=== PATIENT | female | born 1935 | race Caucasian/White ===

== ENCOUNTER 2016-10-04 18:44 | Outpatient (CLI) ==
[2016-08-02 23:45] VITALS: BMI 38.9
[2016-10-04 18:54] LABS: ADD URINE MICROSCOPIC YES; BILIRUBIN,URINE Negative (NEGATIVE); KETONES,URINE Negative (NEGATIVE); LEUKOCYTE ESTERASE ,URINE 3+ (NEGATIVE); NITRITE,URINE Positive (NEGATIVE); PH,URINE 5.5 (5-9); PROTEIN,URINE 2+ (NEGATIVE); URINE, BLOOD 2+ (NEGATIVE)
[2016-10-04 18:55] LABS: BACTERIA,URINE 3+ (NOT PRESENT)
== END 2016-10-04 18:45 | disposition home or self-care (01) ==
LOC: NONPT 18:44
PROVIDERS: ATTEND Internal Medicine
DX: R30.0 Dysuria (principal); R41.0 Disorientation, unspecified
CPT/HCPCS: 81001; 87086; 87186

== ENCOUNTER 2016-11-13 11:23 | Outpatient (CLI) ==
[2016-11-13 14:47] VITALS: BMI 38.4
== END 2016-11-13 11:24 | disposition home or self-care (01) ==
LOC: AMBL 11:23
PROVIDERS: ATTEND Internal Medicine Geriatric Medicine
DX: J96.00 Acute respiratory failure, unspecified whether with hypoxia or hypercapnia (principal); R06.02 Shortness of breath; R05 Cough; R06.2 Wheezing; Z99.81 Dependence on supplemental oxygen

== ENCOUNTER 2016-11-13 11:36 | Inpatient (IN) | payer OTHER ==
[2016-11-13] MEDS ORDERED: DUONEB NEB STA (11:39)
--- NOTE | 2016-11-13 11:43 | ED.PDOC ---
General ED Provider: Dr. LOUIS MCKEON Chief Complaint: Shortness of Air Stated Complaint: Fever 101.8. Short ness of breath with low sat 60 %, usually on 2 li. Had a breathing treatment sat to 84 % ,. Admitted to [facility] due to Foot fracture 4 months ago. Has been sick for 3 days. with cough and wheezing. She Was treated recently for UTI. Code status DNR. Time Seen by Physician: 11:49 Information Source: Patient Primary Care Provider: AMARI DUMONT Nursing and Triage Documentation Reviewed and Agree: Yes Respiratory Complaint Exam - Shortness of Air Complaint/Exam Onset/Duration: 3 days Symptoms Are: Still present Timing: Constant Initial Severity: Severe Current Severity: Severe Character: Reports: Dyspnea at rest Aggravating: Reports: None Alleviating: Reports: EMS treatment, Oxygen Associated Signs and Symptoms: Reports: Cough, Wheezing, Fever, Chills, Edema History of Healthcare-Acquired Pneumonia: No Pulmonary Embolism Risk Factors: Denies: Recent surgery, Recent trauma, DVT Pseudomonas Risk Factors: Reports: Chronic Lung Disease Tuberculosis Risk Factors: Reports: Communal living Home Oxygen Use: Yes (2 l) Recent Stress Test: No Recent Echo/LV Function: No Respiratory Distress: Moderate Stridor Present: No Tracheal Deviation: No Subcutaneous Emphysema: No Accessory Muscle Use: No Diminished Breath Sounds: No Prolonged Expiratory Phase: Yes Unable to Speak Full Sentences: No Fatigue: No Leg Swelling: No Simba's Sign Present: No Grunting Respirations: No Kussmaul Respirations: No Differential Diagnoses: COPD Exacerbation, Pneumonia Review of Systems - Review Of Systems Constitutional: Reports: Chills Eyes: Reports: No symptoms Respiratory: Reports: Cough, Short of air, Wheezing Cardiac: Reports: No symptoms GI: Reports: No symptoms : Reports: No symptoms Musculoskeletal: Reports: No symptoms Skin: Reports: No symptoms Neurological: Reports: No symptoms, Anxiety Endocrine: Reports: No symptoms Hematologic/Lymphatic: Reports: No symptoms All Other Systems: Reviewed and Negative Past Medical History - Past Medical History Endocrine: Reports: Hypothyroid Cardiovascular: Reports: Hypertension Respiratory: Reports: COPD, Other (Respiratory failure ) Hematological: Reports: None Gastrointestinal: Reports: None Genitourinary: Reports: None Neuro/Psych: Reports: Anxiety, Depression Musculoskeletal: Reports: Arthritis, Back Pain Cancer: Reports: None - Surgical History General Surgical History: Reports: Hysterectomy, Cholecystectomy, Other ( Thyroid ) - Family History Family History: Reports: Unknown - Social History Smoking Status: Never smoker Hx Substance Use: No Alcohol Screening: None Physical Exam - Physical Exam Appearance: Ill-appearing Ill-appearing: Severe Neck: Supple Respiratory: Rhonchi, Wheezes GI/: Soft Musculoskeletal: Normal strength, ROM intact, No edema, No calf tenderness Skin: Warm, Dry, Normal color Psychiatric: Anxious Interpretation - Radiology Interpretation Radiology Interpretation By: ED Physician Radiology Results: Positive Exam Interpreted: Portable CXR (Left lower lobe infiltrate. ) - EKG Interpretation Time of EKG #1: 11:42 Rate: Normal Rhythm: Other (Atrial flatter) Ectopy: None [place]: Left Interpretation: No ischemia Physician Notification - Case Discussed Physician Notified: Bejgum Time of Notification: 13:10 (ok to admit To SCU) Critical Care Note - Critical Care Note Total Time (mins): 30 Course - Course Hematology/Chemistry: 11/13/16 11:55 11/13/16 11:55 Orders, Labs, Meds: Lab Review 11/13/16 11/13/16 11:39 11:55 WBC 17.67 H RBC 4.07 L Hgb 12.3 Hct 36.6 L MCV 89.9 MCH 30.2 MCHC 33.6 RDW Coeff of Juan 14.3 Plt Count 345 Immature Gran % (Auto) 1.2 Neut % (Auto) 71.2 Lymph % (Auto) 17.7 Monona % (Auto) 8.6 Eos % (Auto) 1.1 Baso % (Auto) 0.2 Immature Gran # (Auto) 0.2 Neut # 12.6 H Lymph # 3.1 Monona # 1.5 Eos # 0.2 Baso # 0.0 Puncture Site Rr O2 Saturation 86.0 L ABG pH 7.337 L ABG pCO2 66.7 H ABG pO2 56.0 L* ABG HCO3 35.7 H ABG Total CO2 38 H ABG Base Excess 10 H Tyree Test + O2 Delivery Device Nc Oxygen Liter Flow 2.00 FiO2 % 28.0 Sodium 132 L Potassium 4.7 Chloride 90 L Carbon Dioxide 34 H Anion Gap 12.7 BUN 12 Creatinine 0.64 Estimated GFR (MDRD) 90.00 BUN/Creatinine Ratio 18.75 Glucose 161 H Calcium 10.4 H Total Bilirubin 0.36 AST 20 ALT 20 Alkaline Phosphatase 36 L Total Creatine Kinase 139 CK-MB (CK-2) 1.9 CK-MB (CK-2) % 1.81919 Troponin I 0.0150 B-Natriuretic Peptide 577 H Total Protein 6.6 Albumin 2.9 L Globulin 3.7 Albumin/Globulin Ratio 0.78 Orders Category Date Time Status ADMIT PATIENT INPATIENT .TO SCU (MONITORED BED) ADMISSION 11/13/16 12:56 Active ABG DRAW REQUEST Stat CARDIO 11/13/16 11:41 Completed EKG-(ED ONLY) Stat CARDIO 11/13/16 11:40 Completed NEBULIZER TREATMENT Routine CARDIO 11/13/16 13:11 Active NEBULIZER TREATMENT Stat CARDIO 11/13/16 11:41 Completed OXYGEN Routine CARDIO 11/13/16 12:56 Active INTAKE & OUTPUT Q8HR CARE 11/13/16 12:57 Active TELEMETRY MONITORING TELE CARE 11/13/16 12:59 Active VITAL SIGNS Q4HR CARE 11/13/16 13:01 Active REGULAR DIET DIETARY 11/13/16 Dinner Ordered ED IV/MEDIPORT/POWERPORT .ONCE EMERGENCY 11/13/16 11:39 Active ABG Stat LAB 11/13/16 11:39 Completed B-TYPE NATRIURETIC PEPTIDE Stat LAB 11/13/16 11:55 Completed BASIC METABOLIC PANEL DAILY@0600 LAB 11/14/16 06:00 Ordered BASIC METABOLIC PANEL DAILY@0600 LAB 11/15/16 06:00 Ordered BASIC METABOLIC PANEL DAILY@0600 LAB 11/16/16 06:00 Ordered BASIC METABOLIC PANEL DAILY@0600 LAB 11/17/16 06:00 Ordered BASIC METABOLIC PANEL DAILY@0600 LAB 11/18/16 06:00 Ordered BASIC METABOLIC PANEL DAILY@0600 LAB 11/19/16 06:00 Ordered BASIC METABOLIC PANEL DAILY@0600 LAB 11/20/16 06:00 Ordered BASIC METABOLIC PANEL DAILY@0600 LAB 11/21/16 06:00 Ordered BASIC METABOLIC PANEL DAILY@0600 LAB 11/22/16 06:00 Ordered BASIC METABOLIC PANEL DAILY@0600 LAB 11/23/16 06:00 Ordered BASIC METABOLIC PANEL DAILY@0600 LAB 11/24/16 06:00 Ordered BASIC METABOLIC PANEL DAILY@0600 LAB 11/25/16 06:00 Ordered BASIC METABOLIC PANEL DAILY@0600 LAB 11/26/16 06:00 Ordered BASIC METABOLIC PANEL DAILY@0600 LAB 11/27/16 06:00 Ordered BASIC METABOLIC PANEL DAILY@0600 LAB 11/28/16 06:00 Ordered BASIC METABOLIC PANEL DAILY@0600 LAB 11/29/16 06:00 Ordered BASIC METABOLIC PANEL DAILY@0600 LAB 11/30/16 06:00 Ordered BASIC METABOLIC PANEL DAILY@0600 LAB 12/01/16 06:00 Ordered BASIC METABOLIC PANEL DAILY@0600 LAB 12/02/16 06:00 Ordered BASIC METABOLIC PANEL DAILY@0600 LAB 12/03/16 06:00 Ordered BLOOD CULTURE Stat LAB 11/13/16 11:55 Received CBC W/ AUTO DIFF DAILY@0600 LAB 11/14/16 06:00 Ordered CBC W/ AUTO DIFF DAILY@0600 LAB 11/15/16 06:00 Ordered CBC W/ AUTO DIFF DAILY@0600 LAB 11/16/16 06:00 Ordered CBC W/ AUTO DIFF DAILY@0600 LAB 11/17/16 06:00 Ordered CBC W/ AUTO DIFF DAILY@0600 LAB 11/18/16 06:00 Ordered CBC W/ AUTO DIFF DAILY@0600 LAB 11/19/16 06:00 Ordered CBC W/ AUTO DIFF DAILY@0600 LAB 11/20/16 06:00 Ordered CBC W/ AUTO DIFF DAILY@0600 LAB 11/21/16 06:00 Ordered CBC W/ AUTO DIFF DAILY@0600 LAB 11/22/16 06:00 Ordered CBC W/ AUTO DIFF DAILY@0600 LAB 11/23/16 06:00 Ordered CBC W/ AUTO DIFF DAILY@0600 LAB 11/24/16 06:00 Ordered CBC W/ AUTO DIFF DAILY@0600 LAB 11/25/16 06:00 Ordered CBC W/ AUTO DIFF DAILY@0600 LAB 11/26/16 06:00 Ordered CBC W/ AUTO DIFF DAILY@0600 LAB 11/27/16 06:00 Ordered CBC W/ AUTO DIFF DAILY@0600 LAB 11/28/16 06:00 Ordered CBC W/ AUTO DIFF DAILY@0600 LAB 11/29/16 06:00 Ordered CBC W/ AUTO DIFF DAILY@0600 LAB 11/30/16 06:00 Ordered CBC W/ AUTO DIFF DAILY@0600 LAB 12/01/16 06:00 Ordered CBC W/ AUTO DIFF DAILY@0600 LAB 12/02/16 06:00 Ordered CBC W/ AUTO DIFF DAILY@0600 LAB 12/03/16 06:00 Ordered CBC W/ AUTO DIFF Stat LAB 11/13/16 11:55 Completed COMPREHENSIVE METABOLIC PANEL Stat LAB 11/13/16 11:55 Completed CREATINE KINASE Stat LAB 11/13/16 11:55 Completed TROPONIN I Stat LAB 11/13/16 11:55 Completed 0.9 % Sodium Chloride [Saline Flush] MEDS 11/13/16 11:39 Active 1 syr IVF PRN PRN Acetaminophen [Tylenol] MEDS 11/13/16 12:56 Ordered 650 mg PO Q4H PRN Enoxaparin Sodium [Lovenox] MEDS 11/14/16 09:00 Active 40 mg SUBCUT DAILY Ipratropium/Albuterol Neb [Duoneb] MEDS 11/13/16 11:39 Discontinued 1 vial NEB ONCE STA Ipratropium/Albuterol Neb [Duoneb] MEDS 11/13/16 12:56 Active 1 vial NEB RTQ2H PRN Ipratropium/Albuterol Neb [Duoneb] MEDS 11/13/16 14:00 Active 1 vial NEB RTQID Methylprednisolone Sod Succ/Pf [Solu-Medrol 125 mg] MEDS 11/13/16 11:44 Discontinued 125 mg IVP ONCE STA Methylprednisolone Sod Succ/Pf [Solu-Medrol 40 mg] MEDS 11/13/16 13:00 Ordered 40 mg IVP Q8HR Ondansetron HCl/Pf [Zofran 4 mg/2 ml] MEDS 11/13/16 12:56 Ordered 4 mg IVP Q6H PRN Piperacillin Sodium/Tazobactam [Zosyn 3.375 gm] 3.375 MEDS 11/13/16 11:51 Discontinued gm 0.9 % Sodium Chloride [Sodium Chloride] 100 ml IV ONCE Piperacillin Sodium/Tazobactam [Zosyn 3.375 gm] 3.375 MEDS 11/13/16 18:00 Ordered gm 0.9 % Sodium Chloride [Sodium Chloride] 100 ml IV Q6HR Potassium Chloride in 0.9%NaCl [Sodium Chloride 0.9%- MEDS 11/13/16 13:00 Discontinued KCl 20 Meq] 1,000 ml IV 70 mls/hr Vancomycin HCl [Vancomycin] 1 gm MEDS 11/13/16 13:00 Ordered 0.9 % Sodium Chloride [Sodium Chloride] 250 ml IV Q12HR RESUSCITATION STATUS Routine OTHERS 11/13/16 12:56 Completed CHEST, 1V AP ONLY Stat RADS 11/13/16 11:40 Completed OT CONSULTATION Routine THERAPIES 11/13/16 Ordered Medications Generic Name Dose Route Start Last Admin Trade Name Freq PRN Reason Stop Dose Admin Acetaminophen 650 mg 11/13/16 12:56 Tylenol PO Q4H PRN Fever >101 Albuterol/Ipratropium 1 vial 11/13/16 14:00 Duoneb NEB RTQID [facility] Albuterol/Ipratropium 1 vial 11/13/16 12:56 Duoneb NEB RTQ2H PRN Wheezing Aspirin 81 mg 11/14/16 08:00 Aspirin Chewable PO DAILYWM [facility] Atenolol 50 mg 11/14/16 09:00 Tenormin PO DAILY [facility] Benazepril HCl 40 mg 11/14/16 09:00 Lotensin PO DAILY [facility] Diltiazem HCl 60 mg 11/13/16 21:00 Cardizem PO Q12HR [facility] Enoxaparin Sodium 40 mg 11/14/16 09:00 Lovenox SUBCUT DAILY [facility] Fenofibrate 160 mg 11/14/16 09:00 Triglide PO QAM [facility] Furosemide 20 mg 11/13/16 13:30 Lasix Tab PO [id number] [facility] Piperacillin Sod/Tazobactam 100 mls @ 100 mls/hr 11/13/16 18:00 Sod 3.375 gm/ Sodium Chloride IV Q6HR [facility] Vancomycin HCl 1 gm/ Sodium 250 mls @ 125 mls/hr 11/13/16 13:00 Chloride IV Q12HR [facility] Potassium Chloride/Sodium Chloride 1,000 mls @ 40 mls/hr 11/13/16 13:28 Sodium Chloride 0.9%-Kcl 20 Meq IV .Q25H [facility] Levothyroxine Sodium 100 mcg 11/14/16 06:30 Synthroid PO QDAC [facility] Levothyroxine Sodium 75 mcg 11/14/16 06:30 Synthroid PO QDAC [facility] Methylprednisolone Sodium Succinate 40 mg 11/13/16 13:00 Solu-Medrol 40 Mg IVP Q8HR [facility] Multivitamins 1 cap 11/14/16 09:00 Multivitamin PO DAILY [facility]AL[facility] Non-Formulary Medication 1 tab 11/14/16 09:00 Rosuvastatin Calcium [Crestor] PO DAILY [facility] Non-Formulary Medication 5,000 unit 11/14/16 09:00 Cholecalciferol (Vitamin D3) [Vitamin D3] PO DAILY [facility] Ondansetron HCl 4 mg 11/13/16 12:56 Zofran 4 Mg/2 Ml IVP Q6H PRN Nausea / Vomiting Potassium Chloride 10 meq 11/13/16 13:30 K-Dur PO [id number] [facility] Ropinirole HCl 0.5 mg 11/13/16 21:00 Requip PO BEDTIME [facility] Sodium Chloride 1 syr 11/13/16 11:39 Saline Flush IVF PRN PRN To flush IV Discontinued Medications Generic Name Dose Route Start Last Admin Trade Name Freq PRN Reason Stop Dose Admin Albuterol/Ipratropium 1 vial 11/13/16 11:39 11/13/16 12:14 Duoneb NEB 11/13/16 11:40 1 vial ONCE STA Administration Piperacillin Sod/Tazobactam 100 mls @ 100 mls/hr 11/13/16 11:51 11/13/16 12: 30 Sod 3.375 gm/ Sodium Chloride IV 11/13/16 12:50 100 mls/hr ONCE STA Administration Potassium Chloride/Sodium Chloride 1,000 mls @ 70 mls/hr 11/13/16 13:00 Sodium Chloride 0.9%-Kcl 20 Meq IV .[id number] [facility] Methylprednisolone Sodium Succinate 125 mg 11/13/16 11:44 11/13/16 12:14 Solu-Medrol 125 Mg IVP 11/13/16 11:45 125 mg ONCE STA Administration Vital Signs: Temp Pulse Resp BP Pulse Ox 11/13/16 11:36 99 F 79 30 H 184/79 H 89 L Departure - Departure Time of Disposition: 13:25 Disposition: ADMITTED INPATIENT Discharge Problem: Pneumonia Condition: Critical Pt referred to PMD for follow-up: No (Admitted ) Allergies/Adverse Reactions: Allergies paroxetine [From Paxil] Adverse Reaction (Unknown, Verified 11/13/16 11:47) Home Medications: Ambulatory Orders Aspirin [Aspirin Chewable] 81 mg PO QAM 02/25/14 Cholecalciferol (Vitamin D3) [Vitamin D3] 5,000 unit PO DAILY 01/01/16 Ipratropium/Albuterol Neb [Duoneb] 1 vial NEB RTBID 01/01/16 Levothyroxine Sodium [Synthroid] 175 mcg PO DAILY 01/01/16 Multivitamin [Multi-Vitamin Daily] 1 each PO DAILY 01/01/16 Arformoterol Tartrate [Brovana] 1 vial NEB RTBID #60 ml 01/05/16 Atenolol 50 mg PO DAILY #30 tablet 01/05/16 Diltiazem HCl [Cardizem] 60 mg PO Q12HR #60 tablet 01/05/16 Fenofibrate 160 mg PO QAM #30 tablet 01/05/16 Ropinirole HCl [Requip] 0.5 mg PO BEDTIME #30 tablet 01/05/16 Rosuvastatin Calcium [Crestor] 1 tab PO DAILY #30 tablet 01/05/16 Benazepril HCl [Lotensin] 40 mg PO DAILY #30 tablet 08/05/16 Furosemide [Lasix Tab] 20 mg PO MOWETHSA #16 tablet 08/05/16 Potassium Chloride [K-Dur] 10 meq PO MOWETHSA #16 tab 08/05/16 Disposition Discussed With: Patient, Family
[2016-11-13] MEDS ORDERED: SOLU-MEDROL 125 MG IVP STA (11:44)
[2016-11-13] MEDS ORDERED: ZOSYN 3.375 GM 3.375 GM in SODIUM CHLORIDE 100 ML IV STA (11:51)
[2016-11-13 12:05] LABS: BASOPHILS % (AUTO) 0.2 % (0.0-3.0); EOSINOPHILS # (AUTO) 0.2 K/ul (0.0-0.7); EOSINOPHILS % (AUTO) 1.1 % (0.0-7.0); HEMATOCRIT 36.6 % (37.0-47.0); HEMOGLOBIN 12.3 g/dl (12.0-16.0); IMMATURE GRANULOCYTE % (AUTO) 1.2 % (0.0-5.0); LYMPHOCYTES # (AUTO) 3.1 K/uL (0.60-3.4); LYMPHOCYTES % (AUTO) 17.7 (10.0-50.0); MEAN CORPUSCULAR HEMOGLOBIN 30.2 pg (27.0-31.0); MEAN CORPUSCULAR HGB CONC 33.6 (31.8-35.4); MEAN CORPUSCULAR VOLUME 89.9 fl (81.0-99.0); MONOCYTES # (AUTO) 1.5 K/uL (0.4-2.0); MONOCYTES % (AUTO) 8.6 (0-10); NEUTROPHILS # (AUTO) 12.6 K/ul (2.0-6.9); NEUTROPHILS % (AUTO) 71.2; PLATELET COUNT 345 10^3/uL (140-440); RED BLOOD COUNT 4.07 10^6/ul (4.20-5.40); WHITE BLOOD COUNT 17.67 K/ul (4.6-10.2)
[2016-11-13 12:31] LABS: ABG PH 7.337 (7.35-7.45)
[2016-11-13 12:32] LABS: ABG PCO2 66.7 mmHg (35-45)
[2016-11-13 12:33] LABS: ABG BASE EXCESS 10 (-2.0-2.0); ABG HCO3 35.7 (22.0-26.0); ABG TCO2 38 (22.0-28.0)
[2016-11-13 12:40] LABS: ALBUMIN 2.9 g/dL (3.4-5.0); ALBUMIN/GLOBULIN RATIO 0.78; ANION GAP 12.7; BILIRUBIN,TOTAL 0.36 mg/dL (0.00-1.20); BUN/CREATININE RATIO 18.75; CALCIUM 10.4 mg/dL (8.2-10.2); CREATININE 0.64 mg/dL (0.60-1.30); POTASSIUM 4.7 mmol/L (3.5-5.10); TOTAL PROTEIN 6.6 g/dL (5.8-8.1); TROPONIN I 0.015 ng/ml (0.0000-0.4000)
[2016-11-13 12:48] LABS: CREATINE KINASE MB 1.9 ng/ml (0.0-3.6)
--- NOTE | 2016-11-13 12:55 | DI ---
Single radiographic image of the chest. Comparison: CT examination of the chest performed 08/03/2016. Reason for study: Cough. FINDINGS: Developing air space opacities seen in the right middle lobe with likely a small left-keerthi ed pleural effusion and overlying atelectasis. No pneumothorax. The cardiac silhouette is unchange d. Impression: 1. Right middle lobe pneumonia or edema. 2. Left-sided pleural effusion with likely overlying atelectasis.
[2016-11-13] MEDS ORDERED: DUONEB NEB PRN (12:56)
[2016-11-13] MEDS ORDERED: ZOFRAN 4 MG/2 ML IVP PRN (12:56)
[2016-11-13] MEDS ORDERED: TYLENOL PO PRN (12:56)
[2016-11-13] MEDS ORDERED: SODIUM CHLORIDE 0.9%-KCL 20 MEQ 1,000 ML IV SCH (13:00)
[2016-11-13] MEDS ORDERED: VANCOMYCIN 1 GM in SODIUM CHLORIDE 250 ML IV SCH (13:00)
[2016-11-13] MEDS ORDERED: LASIX TAB PO SCH (13:30)
[2016-11-13] MEDS ORDERED: K-DUR PO SCH (13:30)
[2016-11-13] MEDS: DUONEB NEB SCH ×2 (14:31→20:10)
[2016-11-13 14:47] VITALS: TEMP 98.3; BMI 38.4
[2016-11-13] MEDS: SODIUM CHLORIDE 0.9%-KCL 20 MEQ 1,000 ML IV SCH (15:19)
[2016-11-13] MEDS: SOLU-MEDROL 40 MG IVP SCH ×2 (15:20→21:00)
[2016-11-13] MEDS: ZOSYN 3.375 GM 3.375 GM in SODIUM CHLORIDE 100 ML IV SCH (18:05)
[2016-11-13] MEDS ORDERED: NON-FORMULARY MEDICATION (Ropinirole Hcl [Requip] 0.5 MG) PO SCH (21:00)
[2016-11-13] MEDS ORDERED: REQUIP PO SCH (21:00)
[2016-11-13 21:34] LABS: ABG PCO2 88.1 mmHg (35-45); ABG PH 7.245 (7.35-7.45)
[2016-11-13 21:35] LABS: ABG BASE EXCESS 11 (-2.0-2.0); ABG HCO3 38.2 (22.0-26.0); ABG TCO2 41 (22.0-28.0)
[2016-11-13] MEDS: VANCOMYCIN 750 MG in SODIUM CHLORIDE 250 ML IV SCH (21:45)
[2016-11-13 23:11] LABS: ABG PH 7.283 (7.35-7.45)
[2016-11-13 23:12] LABS: ABG BASE EXCESS 13 (-2.0-2.0); ABG HCO3 39.5 (22.0-26.0); ABG PCO2 83.6 mmHg (35-45); ABG TCO2 42 (22.0-28.0)
[2016-11-13] MEDS: CARDIZEM PO SCH (23:21)
[2016-11-13] MEDS ORDERED: VERSED ONE (23:40)
[2016-11-13] MEDS ORDERED: SUBLIMAZE ONE (23:43)
[2016-11-13] MEDS ORDERED: NORCURON ONE (23:57)
[2016-11-13] MEDS ORDERED: NORCURON IVP STA (23:59)
[2016-11-14] MEDS ORDERED: DIPRIVAN 100 ML VIAL 100 ML IV ONE ×2 (00:34→06:42)
[2016-11-14] MEDS: DIPRIVAN 100 ML VIAL 1,000 MG in PREMIX INFUSION 100 ML VIAL 1 VIAL IV SCH ×3 (00:40→06:54)
[2016-11-14 00:50] LABS: ABG PH 7.482 (7.35-7.45)
[2016-11-14 00:51] LABS: ABG BASE EXCESS 12 (-2.0-2.0); ABG HCO3 35.6 (22.0-26.0); ABG PCO2 47.5 mmHg (35-45); ABG TCO2 37 (22.0-28.0)
[2016-11-14] MEDS: NORCURON IVP PRN ×8 (01:07→12:38)
--- NOTE | 2016-11-14 01:09 | ED.PDOC ---
Procedures - Intubation Medications: Yes: Norcuron (norcuron 8mg @ 2359 and 2mg @ 0030), Succinylcholine (100mg anectine @2350), Versed (versed 2.5mg @2350 and 2.5mg @ 0023), Propofol (40mg propofol @ 2350 waste 160mg), Other (fentanyl 50ug @2350 and 50ug @0023) Type of Tube Used: Endotracheal Tube Size: 7 Cricoid Pressure Used: No Tube Eng Used: Yes Position of Tube at Lip: 22 Number of Attempts: 1 Suction Used: No Glidescope Used: No CO2 Detector Used: Yes Lung Sounds Equal Bilaterally: Yes Intubation Complications: Present: No complications Tube Inserted By: Goran Lord CRNA Tube Placement Verified by X-ray: Yes - IV/Art Line Insertion Location: left radial artery Type of Line: Arterial Line (22 ga left radial artery) Number of Attempts: 1 Blood Return Positive: Yes Invasive Line/IV Flushes Without Difficulty: Yes Conscious Sedation - Pre-op Assessment Weight: 238 lb 1.6 oz Surgical History: hysterectomy, GB surg, thyroid surg - Medical History Past Medical History: Hypertension, Thyroid, High Lipids, COPD, Depression, Anxiety, Arthritis Other History: resp failure - Physical Exam Heart Rate/Rhythm: Regular Rhythm
[2016-11-14] MEDS: ZOSYN 3.375 GM 3.375 GM in SODIUM CHLORIDE 100 ML IV SCH ×2 (01:30→12:12)
--- NOTE | 2016-11-14 01:48 | DI ---
EXAM: Portable chest HISTORY: Endotracheal tube placement COMPARISON: Single-view chest 11/13/2016 FINDINGS: The cardiomediastinal silhouette is stable. Endotracheal tube is in good position above the [place]. There is improving aeration of both lung bases. IMPRESSION: Stable cardiomediastinal silhouette. Satisfactory appearing endotracheal tube. Improving aeration of both lung bases.
[2016-11-14] MEDS ORDERED: ATIVAN IVP PRN (02:30)
[2016-11-14] MEDS: VANCOMYCIN 750 MG in SODIUM CHLORIDE 250 ML IV SCH ×2 (04:56→15:45)
[2016-11-14] MEDS: SOLU-MEDROL 40 MG IVP SCH ×2 (05:37→15:44)
[2016-11-14] MEDS: DUONEB NEB SCH ×2 (06:10→10:07)
[2016-11-14] MEDS ORDERED: SYNTHROID PO SCH ×2 (06:30)
[2016-11-14 07:01] VITALS: BP 178/71
[2016-11-14 07:15] LABS: ABG BASE EXCESS 10 (-2.0-2.0); ABG HCO3 33 (22.0-26.0); ABG PCO2 41.7 mmHg (35-45); ABG PH 7.507 (7.35-7.45); ABG TCO2 34 (22.0-28.0)
[2016-11-14 07:51] LABS: BASOPHILS % (AUTO) 0.2 % (0.0-3.0); HEMATOCRIT 33.9 % (37.0-47.0); HEMOGLOBIN 11.4 g/dl (12.0-16.0); IMMATURE GRANULOCYTE % (AUTO) 1.8 % (0.0-5.0); LYMPHOCYTES % (AUTO) 12.7 (10.0-50.0); MEAN CORPUSCULAR HEMOGLOBIN 29.5 pg (27.0-31.0); MEAN CORPUSCULAR HGB CONC 33.6 (31.8-35.4); MEAN CORPUSCULAR VOLUME 87.8 fl (81.0-99.0); MONOCYTES # (AUTO) 0.8 K/uL (0.4-2.0); MONOCYTES % (AUTO) 4.9 (0-10); NEUTROPHILS # (AUTO) 12.7 K/ul (2.0-6.9); NEUTROPHILS % (AUTO) 80.4; PLATELET COUNT 327 10^3/uL (140-440); RED BLOOD COUNT 3.86 10^6/ul (4.20-5.40); WHITE BLOOD COUNT 15.81 K/ul (4.6-10.2)
[2016-11-14] MEDS ORDERED: ASPIRIN CHEWABLE PO SCH (08:00)
[2016-11-14 08:25] LABS: ANION GAP 13.1; BUN/CREATININE RATIO 23.52; CALCIUM 9.8 mg/dL (8.2-10.2); CREATININE 0.68 mg/dL (0.60-1.30); POTASSIUM 4.1 mmol/L (3.5-5.10)
[2016-11-14 08:50] LABS: ABG PH 7.513 (7.35-7.45)
[2016-11-14 08:51] LABS: ABG BASE EXCESS 10 (-2.0-2.0); ABG HCO3 32.7 (22.0-26.0); ABG PCO2 40.7 mmHg (35-45); ABG TCO2 34 (22.0-28.0)
[2016-11-14] MEDS ORDERED: NON-FORMULARY MEDICATION (Cholecalciferol (Vitamin D3) [Vitamin D3] 5,000 UNIT) PO SCH ×22 (09:00)
[2016-11-14] MEDS ORDERED: NON-FORMULARY MEDICATION (Rosuvastatin Calcium [Crestor] 1 TAB) PO SCH ×22 (09:00)
[2016-11-14] MEDS ORDERED: TRIGLIDE PO SCH (09:00)
[2016-11-14] MEDS ORDERED: LOVENOX SUBCUT SCH (09:00)
[2016-11-14] MEDS ORDERED: NON-FORMULARY MEDICATION (Multivitamin [Multi-Vitamin Daily] 1 EACH) PO SCH ×22 (09:00)
[2016-11-14] MEDS ORDERED: CRESTOR PO SCH (09:00)
[2016-11-14] MEDS ORDERED: MULTIVITAMIN PO SCH (09:00)
[2016-11-14] MEDS ORDERED: VITAMIN D PO SCH (09:00)
[2016-11-14] MEDS ORDERED: TENORMIN PO SCH (09:00)
[2016-11-14] MEDS ORDERED: LOTENSIN PO SCH (09:00)
[2016-11-14] MEDS ORDERED: NON-FORMULARY MEDICATION (Levothyroxine Sodium [Synthroid] 175 MCG) PO SCH ×22 (09:00)
[2016-11-14] MEDS: CARDIZEM PO SCH (10:29)
--- NOTE | 2016-11-14 10:52 | PCM ---
- Chief Complaint Chief Complaint: SHORTNESS OF BREATH, AND FEVER - History of Present Illness History of Present Illness: [place] brought from the [place], Fever 101.8. Shortness of breath with low sat 60 %, usually on 2 li. Had a breathing treatment sat to 84 %, been coughing congestion, getting yellow green sputum, Admitted to [facility] due to Foot fracture 4 months ago. Has been sick for 3 days. Code status DNR. seen by Dr Howard in ER, found to be in acute respiratory failure, and cxr SHOWED INFILTRATES, Admitted to hospital with health care acquired Pneumonia. - Review of Systems Constitutional: fever, weakness, fatigue. No: chills, sweats, loss of appetite , other Eyes: No: blurred vision, double-vision, discharge, itching, pain, redness, photophobia, other Ears: No: pain, bleeding, drainage, ringing, hearing loss, other Nose: No: bleeding, congestion, discharge, other Throat: No: pain, swelling, voice change, other Mouth: No: bleeding, pain, swelling, other Respiratory: cough, shortness of air, wheeze. No: hemoptysis, pain with breathing, other Cardiovascular: orthopnea. No: chest pain, left arm pain, diaphoresis, PND, edema, palpitations, syncope, other Gastrointestinal: No: abdominal pain, other, nausea, vomiting, diarrhea, melena , hematemesis, hematochezia, dysphagia, constipation Genitourinary: No: dysuria, hematuria, frequency, incontinence, flank pain, vaginal discharge, abnormal bleeding, pelvic pain, other Neurological: No: headache, other, dizziness, seizure, numbness, weakness, speech difficulty, problems with walking, tremor, fainting Musculoskeletal: pain (foot) Skin: No: rash, pruritus, lacerations, wounds, bruising, other - Past Medical History Past Medical History: COPD. HYPERTENSION, labile. CAD,. CHF. FREQUENT FALLS. HYPOTHYROIDISM. CHA. OSTEOARTHRITIS. RECER RIGHT FOOT FRACTURE - Past Surgical History Past Surgical History: Appendectomy. cholecystectomy. hysterectomy - Allergies Allergies/Adverse Reactions: Allergies Allergy/AdvReac Type Severity Reaction Status Date / Time paroxetine [From Paxil] AdvReac Unknown Verified 11/13/16 11:47 - Medications Medications: Medications Generic Name Dose Route Start Last Admin Trade Name Freq PRN Reason Stop Dose Admin Acetaminophen 650 mg 11/13/16 12:56 Tylenol PO Q4H PRN Fever >101 Albuterol/Ipratropium 1 vial 11/13/16 14:00 11/14/16 10:07 Duoneb NEB 1 vial RTQID RALPH Administration Albuterol/Ipratropium 1 vial 11/13/16 12:56 Duoneb NEB RTQ2H PRN Wheezing Aspirin 81 mg 11/14/16 08:00 11/14/16 10:29 Aspirin Chewable PO Not Given DAILYWM [facility] Atenolol 50 mg 11/14/16 09:00 11/14/16 10:30 Tenormin PO Not Given DAILY [facility] Benazepril HCl 40 mg 11/14/16 09:00 11/14/16 10:29 Lotensin PO Not Given DAILY [facility] Cholecalciferol 5,000 unit 11/14/16 09:00 11/14/16 10:31 Vitamin D PO Not Given DAILY [facility] Diltiazem HCl 60 mg 11/13/16 21:00 11/14/16 10:29 Cardizem PO Not Given Q12HR [facility] Enoxaparin Sodium 40 mg 11/14/16 09:00 11/14/16 10:40 Lovenox SUBCUT 40 mg DAILY RALPH Administration Fenofibrate 160 mg 11/14/16 09:00 11/14/16 10:31 Triglide PO Not Given QAM [facility] Furosemide 20 mg 11/13/16 13:30 11/13/16 15:18 Lasix Tab PO 20 mg [id number] RALPH Administration Piperacillin Sod/Tazobactam 100 mls @ 100 mls/hr 11/13/16 18:00 11/14/16 01: 30 Sod 3.375 gm/ Sodium Chloride IV 100 mls/hr Q6HR RALPH Administration Potassium Chloride/Sodium Chloride 1,000 mls @ 40 mls/hr 11/13/16 13:28 11/13 15:19 Sodium Chloride 0.9%-Kcl 20 Meq IV 40 mls/hr .Q25H RALPH Administration Vancomycin HCl 750 mg/ Sodium 250 mls @ 125 mls/hr 11/13/16 22:00 11/14/16 04 :56 Chloride IV 125 mls/hr Q8HR RALPH Administration Propofol 1,000 mg/ Sterile 100 mls @ 6.48 mls/hr 11/14/16 01:00 11/14/16 06: 54 Water IV 20 mcg/kg/min .[id number] RALPH 12.96 mls/hr Protocol Administration 10 MCG/KG/MIN Levothyroxine Sodium 100 mcg 11/14/16 06:30 11/14/16 10:30 Synthroid PO Not Given QDAC RALPH Levothyroxine Sodium 75 mcg 11/14/16 06:30 11/14/16 10:30 Synthroid PO Not Given QDAC RALPH Lorazepam 1 mg 11/14/16 02:30 11/14/16 02:46 Ativan IVP 1 mg Q6H PRN Administration Restlessness Methylprednisolone Sodium Succinate 40 mg 11/13/16 13:00 11/14/16 05:37 Solu-Medrol 40 Mg IVP 40 mg Q8HR RALPH Administration Multivitamins 1 cap 11/14/16 09:00 11/14/16 10:28 Multivitamin PO Not Given DAILY [facility] Ondansetron HCl 4 mg 11/13/16 12:56 Zofran 4 Mg/2 Ml IVP Q6H PRN Nausea / Vomiting Potassium Chloride 10 meq 11/13/16 13:30 11/13/16 15:17 K-Dur PO 10 meq [id number] RALPH Administration Ropinirole HCl 0.5 mg 11/13/16 21:00 11/13/16 23:22 Requip PO Not Given BEDTIME [facility] Rosuvastatin Calcium 20 mg 11/14/16 09:00 11/14/16 10:29 Crestor PO Not Given DAILY [facility] Sodium Chloride 1 syr 11/13/16 11:39 11/13/16 21:00 Saline Flush IVF 1 syr PRN PRN Administration To flush IV Vecuronium [place] 2 - 3 mg 11/14/16 00:36 11/14/16 10:22 Norcuron IVP 3 mg PRN PRN Administration Intubation sedation - Family History Past Family History: not significant - Social History Past Social History: care home resident,. single. has daughet who is POA - Vital Signs Temperature: 98.3 F Pulse Rate: 64 Respiratory Rate: 14 Blood Pressure: 178/71 O2 Sat by Pulse Oximetry: 99 - Body Composition Height: 5 ft 6 in Weight: 238 lb 1.6 oz Body Mass Index (BMI): 38.4 - Physical Examination HEENT: Atraumatic, normocephalic, Pallor present. dry mucosa Neurological: AAO X3 MOVING ALL 4 EXTREMITIES. Neck: supple No JVD, no bruit Lungs: Decreased entry, diffuse wheezing bilaterally. with basilar crackles Heart: sinus, no murmur Abdomen: OBESE, SOFT NON TENDER, bs PRESENT. Lower Extremities: no edema. - Lab/Tests/Diagnostic Imaging Lab/Tests/Diagnostic Imaging: Abnormal Lab Results 11/13/16 11/13/16 11/13/16 11:39 11:55 21:19 WBC 17.67 H RBC 4.07 L Hgb 12.3 Hct 36.6 L MCV 89.9 MCH 30.2 MCHC 33.6 RDW Coeff of Juan 14.3 Plt Count 345 Immature Gran % (Auto) 1.2 Neut % (Auto) 71.2 Lymph % (Auto) 17.7 [place] % (Auto) 8.6 Eos % (Auto) 1.1 Baso % (Auto) 0.2 Immature Gran # (Auto) 0.2 Neut # 12.6 H Lymph # 3.1 [place] # 1.5 Eos # 0.2 Baso # 0.0 Puncture Site Rr Lbrach O2 Saturation 86.0 L 85.0 L ABG pH 7.337 L 7.245 L* ABG pCO2 66.7 H 88.1 H ABG pO2 56.0 L* 63.0 L ABG HCO3 35.7 H 38.2 H ABG Total CO2 38 H 41 H ABG Base Excess 10 H 11 H Tyree Test + + O2 Delivery Device Nc venturi mask Oxygen Liter Flow 2.00 4.00 FiO2 % 28.0 30.0 Sodium 132 L Potassium 4.7 Chloride 90 L Carbon Dioxide 34 H Anion Gap 12.7 BUN 12 Creatinine 0.64 Estimated GFR (MDRD) 90.00 BUN/Creatinine Ratio 18.75 Glucose 161 H Calcium 10.4 H Total Bilirubin 0.36 AST 20 ALT 20 Alkaline Phosphatase 36 L Total Creatine Kinase 139 CK-MB (CK-2) 1.9 CK-MB (CK-2) % 1.73946 Troponin I 0.0150 B-Natriuretic Peptide 577 H Total Protein 6.6 Albumin 2.9 L Globulin 3.7 Albumin/Globulin Ratio 0.78 11/13/16 11/14/16 11/14/16 23:00 00:03 07:01 WBC RBC Hgb Hct MCV MCH MCHC RDW Coeff of Juan Plt Count Immature Gran % (Auto) Neut % (Auto) Lymph % (Auto) [place] % (Auto) Eos % (Auto) Baso % (Auto) Immature Gran # (Auto) Neut # Lymph # [place] # Eos # Baso # Puncture Site lb Vent Rrad O2 Saturation 89.0 L 100.0 90.0 L ABG pH 7.283 L* 7.482 H 7.507 H* ABG pCO2 83.6 H 47.5 H 41.7 ABG pO2 68.0 L 472.0 H 53.0 L* ABG HCO3 39.5 H 35.6 H 33 H ABG Total CO2 42 H 37 H 34 H ABG Base Excess 13 H 12 H 10 H Tyree Test + + + O2 Delivery Device bipap Vent Oxygen Liter Flow FiO2 % 30.0 100.0 40.0 Sodium Potassium Chloride Carbon Dioxide Anion Gap BUN Creatinine Estimated GFR (MDRD) BUN/Creatinine Ratio Glucose Calcium Total Bilirubin AST ALT Alkaline Phosphatase Total Creatine Kinase CK-MB (CK-2) CK-MB (CK-2) % Troponin I B-Natriuretic Peptide Total Protein Albumin Globulin Albumin/Globulin Ratio 11/14/16 11/14/16 07:20 08:26 WBC 15.81 H RBC 3.86 L Hgb 11.4 L Hct 33.9 L MCV 87.8 MCH 29.5 MCHC 33.6 RDW Coeff of Juan 13.8 Plt Count 327 Immature Gran % (Auto) 1.8 Neut % (Auto) 80.4 Lymph % (Auto) 12.7 [place] % (Auto) 4.9 Eos % (Auto) 0.0 Baso % (Auto) 0.2 Immature Gran # (Auto) 0.3 Neut # 12.7 H Lymph # 2.0 [place] # 0.8 Eos # 0.0 Baso # 0.0 Puncture Site Art line O2 Saturation 99.0 ABG pH 7.513 H* ABG pCO2 40.7 ABG pO2 106.0 H ABG HCO3 32.7 H ABG Total CO2 34 H ABG Base Excess 10 H Tyree Test O2 Delivery Device Vent Oxygen Liter Flow FiO2 % 60.0 Sodium 135 L Potassium 4.1 Chloride 95 L Carbon Dioxide 31 Anion Gap 13.1 BUN 16 Creatinine 0.68 Estimated GFR (MDRD) 83.00 BUN/Creatinine Ratio 23.52 Glucose 205 H Calcium 9.8 Total Bilirubin AST ALT Alkaline Phosphatase Total Creatine Kinase CK-MB (CK-2) CK-MB (CK-2) % Troponin I B-Natriuretic Peptide Total Protein Albumin Globulin Albumin/Globulin Ratio - Assessment (1) COPD exacerbation Status: Acute SNOMED Code(s): 505204916, 505055027 (2) Pneumonia Status: Acute SNOMED Code(s): 987764803 Qualifiers: Pneumonia type: due to unspecified organism Laterality: right Lung location: middle lobe of lung Qualified Description: Pneumonia of right middle lobe due to infectious organism Qualifier Code(s): (J18.1) Lobar pneumonia, unspecified organism (3) Hypertension Status: Chronic SNOMED Code(s): 68999831 (4) Hypoxemia Status: Acute SNOMED Code(s): 890108412 - Plan Plan: ADMIT TO scu 1,CBC CMP DAILY 2, abg IN 2 HRS 3, dUONEB 4, SOLUMEDROL 5,Vancomycine 6, zosyn continue home medications. Patient daughter was there and she wanted her mother status to be full code. discussed about the risk of possible Intubation, verbalized understanding
[2016-11-14] MEDS: SOLU-MEDROL 125 MG IVP SCH ×2 (11:00→15:44)
--- NOTE | 2016-11-14 11:13 | PCM.PROG ---
Subjective: Patient seen and examined today, yesterday night patient was lethargic, ABG showed CO2 norcosis, she was put on Bipap, but not getting better, at that time patient was intubated, after informing the daughter now she is on ventilator, sedated, daughter in the room Objective: Vitals: T=98.3 F, P=64, R=14, KR=120/71, SPO2=99 HEENT: [Atramatic, tube in mouth,] Neck: [supple no JVD] Lungs: [bilateral entry equaly and wheezing present.] CVS: [s1 s2 normal. no murmur.] Abdomen: [soft non tender, BS present] Extremities: [no edema] Neurological: [not responding as she is sedated] Skin: [] Lab/Tests/Diagnostic Imaging: [ Abnormal Lab Results 11/13/16 11/13/16 11/13/16 11:39 11:55 21:19 WBC 17.67 H RBC 4.07 L Hgb 12.3 Hct 36.6 L MCV 89.9 MCH 30.2 MCHC 33.6 RDW Coeff of Juan 14.3 Plt Count 345 Immature Gran % (Auto) 1.2 Neut % (Auto) 71.2 Lymph % (Auto) 17.7 [place] % (Auto) 8.6 Eos % (Auto) 1.1 Baso % (Auto) 0.2 Immature Gran # (Auto) 0.2 Neut # 12.6 H Lymph # 3.1 [place] # 1.5 Eos # 0.2 Baso # 0.0 Puncture Site Rr Lbrach O2 Saturation 86.0 L 85.0 L ABG pH 7.337 L 7.245 L* ABG pCO2 66.7 H 88.1 H ABG pO2 56.0 L* 63.0 L ABG HCO3 35.7 H 38.2 H ABG Total CO2 38 H 41 H ABG Base Excess 10 H 11 H Tyree Test + + O2 Delivery Device Nc venturi mask Oxygen Liter Flow 2.00 4.00 FiO2 % 28.0 30.0 Sodium 132 L Potassium 4.7 Chloride 90 L Carbon Dioxide 34 H Anion Gap 12.7 BUN 12 Creatinine 0.64 Estimated GFR (MDRD) 90.00 BUN/Creatinine Ratio 18.75 Glucose 161 H Calcium 10.4 H Total Bilirubin 0.36 AST 20 ALT 20 Alkaline Phosphatase 36 L Total Creatine Kinase 139 CK-MB (CK-2) 1.9 CK-MB (CK-2) % 1.20823 Troponin I 0.0150 B-Natriuretic Peptide 577 H Total Protein 6.6 Albumin 2.9 L Globulin 3.7 Albumin/Globulin Ratio 0.78 11/13/16 11/14/16 11/14/16 23:00 00:03 07:01 WBC RBC Hgb Hct MCV MCH MCHC RDW Coeff of Juan Plt Count Immature Gran % (Auto) Neut % (Auto) Lymph % (Auto) [place] % (Auto) Eos % (Auto) Baso % (Auto) Immature Gran # (Auto) Neut # Lymph # [place] # Eos # Baso # Puncture Site lb Vent Rrad O2 Saturation 89.0 L 100.0 90.0 L ABG pH 7.283 L* 7.482 H 7.507 H* ABG pCO2 83.6 H 47.5 H 41.7 ABG pO2 68.0 L 472.0 H 53.0 L* ABG HCO3 39.5 H 35.6 H 33 H ABG Total CO2 42 H 37 H 34 H ABG Base Excess 13 H 12 H 10 H Tyree Test + + + O2 Delivery Device bipap Vent Oxygen Liter Flow FiO2 % 30.0 100.0 40.0 Sodium Potassium Chloride Carbon Dioxide Anion Gap BUN Creatinine Estimated GFR (MDRD) BUN/Creatinine Ratio Glucose Calcium Total Bilirubin AST ALT Alkaline Phosphatase Total Creatine Kinase CK-MB (CK-2) CK-MB (CK-2) % Troponin I B-Natriuretic Peptide Total Protein Albumin Globulin Albumin/Globulin Ratio 11/14/16 11/14/16 07:20 08:26 WBC 15.81 H RBC 3.86 L Hgb 11.4 L Hct 33.9 L MCV 87.8 MCH 29.5 MCHC 33.6 RDW Coeff of Juan 13.8 Plt Count 327 Immature Gran % (Auto) 1.8 Neut % (Auto) 80.4 Lymph % (Auto) 12.7 [place] % (Auto) 4.9 Eos % (Auto) 0.0 Baso % (Auto) 0.2 Immature Gran # (Auto) 0.3 Neut # 12.7 H Lymph # 2.0 [place] # 0.8 Eos # 0.0 Baso # 0.0 Puncture Site Art line O2 Saturation 99.0 ABG pH 7.513 H* ABG pCO2 40.7 ABG pO2 106.0 H ABG HCO3 32.7 H ABG Total CO2 34 H ABG Base Excess 10 H Tyree Test O2 Delivery Device Vent Oxygen Liter Flow FiO2 % 60.0 Sodium 135 L Potassium 4.1 Chloride 95 L Carbon Dioxide 31 Anion Gap 13.1 BUN 16 Creatinine 0.68 Estimated GFR (MDRD) 83.00 BUN/Creatinine Ratio 23.52 Glucose 205 H Calcium 9.8 Total Bilirubin AST ALT Alkaline Phosphatase Total Creatine Kinase CK-MB (CK-2) CK-MB (CK-2) % Troponin I B-Natriuretic Peptide Total Protein Albumin Globulin Albumin/Globulin Ratio ] (1) COPD exacerbation Status: Acute SNOMED Code(s): 445808243 (2) Pneumonia Status: Acute SNOMED Code(s): 212822818 (3) Hypertension Status: Chronic SNOMED Code(s): 64929565 (4) Hypoxemia Status: Acute SNOMED Code(s): 871906330 Plan: discussed care with patient daughter, wants to transfer to [facility] continue sedation. continue vancomycin solumedrol 125 q 8 hr caroline will give dose of lasix 40 ivp now lovenoshahid will talk to [facility] Hospitalist
[2016-11-14] MEDS: SODIUM CHLORIDE 0.9%-KCL 20 MEQ 1,000 ML IV SCH (15:44)
--- NOTE | 2017-02-03 14:51 | DS ---
DATE OF SERVICE: 11/14/16 FINAL DIAGNOSIS: 1. COPD exacerbation secondary to the pneumonia 2. Respiratory failure, intubation 3. CO2 Narcosis 4. Hypoxemia 5. Community acquired pneumonia 6. Diastolic heart failure 7. Hypertension 8. Dyslipidemia 9. Depression 10.Anxiety 11.Osteoarthritis 12.DJD spine DISCHARGE INSTRUCTIONS: Transfer the patient to the [facility] under the care of [employer] and for Intensive Care Unit. Continue the Vancomycin. Continue Solu-Medrol 125 Q 8 hours, DUO NEBS, Lovenox. Continue the Sedation at this time under the care of the hospitalist. MEDICATIONS AT DISCHARGE: Aspirin chewable Vitamin D3 Synthroid DUONEB Multivitamin daily Cardizem Brovana Atenolol Requip Fenofibrate Crestor Lotensin Lasix K-Dur DIET INSTRUCTIONS: None at this as patient is intubated. ACTIVITY: N/A SMOKING: N/A DISEASE SPECIFIC EDUCATION: Pneumonia and pneumonia vaccination Fluid overload Sodium diet Been discussed with the patient and family in detail. HOSPITAL COURSE: Aure Sheriff who is a 81 year old female who was admitted from the emergency room by Dr. Howard for COPD exacerbation secondary to the pneumonia with CO2 narcosis. The patient was initially placed on the CPAP but her condition was gradually getting worse and by November 13 by nighttime the pO2 was 83.6. At that time [facility] was called and the patient was intubated as per the family. The patient's daughter who is the power of dampener. By next day the patient was still sedated because the patient was trying to move. When I discussed with case with the patient's daughter she clearly mentioned her wish to be transferred to [facility] and at that time she was transferred to [facility] for the weight management and the pneumonia and under the care of [employer]. TIME SPENT: More than 65 Minutes MTDD
== END 2016-11-14 12:55 | disposition short-term general hospital (02) | DRG 193 ==
LOC: ED 11:36 → SCU 13:08
PROVIDERS: ADMIT Emergency Medicine; ATTEND Emergency Medicine
PROC: 0BH17EZ Insertion of Endotracheal Airway into Trachea, Via Natural or Artificial Opening (ICD-10-PCS; principal; 2016-11-14)
DX: J18.9 Pneumonia, unspecified organism (principal); J96.01 Acute respiratory failure with hypoxia; J44.1 Chronic obstructive pulmonary disease with (acute) exacerbation; I50.30 Unspecified diastolic (congestive) heart failure; I10 Essential (primary) hypertension; R06.02 Shortness of breath; E78.5 Hyperlipidemia, unspecified; F41.8 Other specified anxiety disorders; M19.90 Unspecified osteoarthritis, unspecified site; M47.9 Spondylosis, unspecified; R50.9 Fever, unspecified; Z99.81 Dependence on supplemental oxygen; Z79.899 Other long term (current) drug therapy
CPT/HCPCS: 36415; 80048; 80053; 82550; 82553; 82803; 83880; 84484; 85025; 87040; 87081; 93005; 93010; 94002; 94003; 94640; 96365; 96375; 99285

== ENCOUNTER 2016-12-15 07:38 | Outpatient (CLI) | END 2016-12-15 07:39 | LOC: AMBL 07:38 | PROVIDERS: ATTEND Emergency Medicine | DX: R09.02 Hypoxemia (principal); R60.0 Localized edema; I10 Essential (primary) hypertension; E66.01 Morbid (severe) obesity due to excess calories ==

== ENCOUNTER 2016-12-15 07:48 | Emergency (ER) ==
[2016-12-15 08:08] VITALS: BP 147/64; TEMP 98.7; BMI 39.6
[2016-12-15 08:12] LABS: ABG PH 7.36 (7.35-7.45)
[2016-12-15 08:13] LABS: ABG BASE EXCESS 11 (-2.0-2.0); ABG HCO3 36 (22.0-26.0); ABG TCO2 38 (22.0-28.0)
--- NOTE | 2016-12-15 08:14 | ED.PDOC ---
General ED Provider: Dr. LEVON MURRAY JR Chief Complaint: Respiratory Complaint Stated Complaint: COUGH, EDEMA BOTH LEGS, NAUSEA, HEADACHE.[End]3 days 98.7 86 28 77% 147/64 unsure why she is here feels she has been nauseated since tuesday and has had leg welling about hte same time denies PMD (but has seen dr Phipps and has seen him at dr Brady office per report to [facility]) Time Seen by Physician: 08:13 Mode of Arrival: Ambulance Information Source: Patient, Snf, EMT Exam Limitations: No limitations Primary Care Provider: SEAN PHIPPS Nursing and Triage Documentation Reviewed and Agree: No Review of Systems - Review Of Systems Constitutional: Reports: Malaise, Weakness Respiratory: Reports: Short of air Cardiac: Reports: Edema GI: Reports: Nausea : Reports: No symptoms Musculoskeletal: Reports: No symptoms Skin: Reports: No symptoms Neurological: Reports: No symptoms Endocrine: Reports: No symptoms Hematologic/Lymphatic: Reports: No symptoms All Other Systems: Other Past Medical History - Past Medical History Endocrine: Reports: Hypothyroid, Dyslipidemia Cardiovascular: Reports: Hypertension Respiratory: Reports: COPD, Other (Respiratory failure ) Hematological: Reports: None Gastrointestinal: Reports: None Genitourinary: Reports: None Neuro/Psych: Reports: Anxiety, Depression Musculoskeletal: Reports: Arthritis, Back Pain Cancer: Reports: None Last Menstrual Period: NA - Surgical History General Surgical History: Reports: Hysterectomy, Cholecystectomy, Other ( Thyroid ) - Family History Family History: Reports: Unknown - Social History Smoking Status: Never smoker Hx Substance Use: No Alcohol Screening: None Physical Exam - Physical Exam Appearance: Well-appearing, Obese Ill-appearing: Mild Pain Distress: Mild Eyes: PEGGY, EOMI, Conjunctiva clear ENT: Ears normal, Nose normal, Oropharynx normal Neck: Supple Respiratory: Airway patent, Breath sounds clear, Breath sounds equal, Respirations nonlabored Cardiovascular: RRR, Pulses normal, No rub, No murmur GI/: Soft, Nontender, No masses, Bowel sounds normal, No Organomegaly Musculoskeletal: Normal strength, ROM intact, No edema, No calf tenderness Skin: Warm, Dry, Normal color Neurological: Sensation intact, Motor intact, Reflexes intact, Cranial nerves intact, Alert, Oriented Psychiatric: Affect appropriate, Mood appropriate Interpretation - Radiology Interpretation Radiology Interpretation By: Radiologist Radiology Results: Positive Exam Interpreted: CXR (mild pulmonary edema) Radiology Interpretation By: Radiologist Radiology Results: Negative Exam Interpreted: Other (VENOUS SCAN) - EKG Interpretation Time of EKG #1: 08:20 Rate: Normal Rhythm: Sinus Holmes: Left ST Segment: Other (POSSIBLE OLD SEPTAL INFARCT) Physician Notification - Case Discussed Physician Notified: MOISE Time of Notification: 09:33 (LASIX STEROIDS BEGIN TWICE A DAY LASIX NO NEED TO ZULMA[PEAT CARDIAC MARKERS) Critical Care Note - Critical Care Note Total Time (mins): 5 Course - Course Hematology/Chemistry: 12/15/16 08:20 12/15/16 08:20 Orders, Labs, Meds: Lab Review 12/15/16 12/15/16 12/15/16 07:59 08:20 08:29 WBC 14.89 H RBC 3.69 L Hgb 11.1 L Hct 33.5 L MCV 90.8 MCH 30.1 MCHC 33.1 RDW Coeff of Juan 14.6 Plt Count 287 Immature Gran % (Auto) 0.5 Neut % (Auto) 71.4 Lymph % (Auto) 18.5 [place] % (Auto) 6.8 Eos % (Auto) 2.7 Baso % (Auto) 0.1 Immature Gran # (Auto) 0.1 Neut # 10.6 H Lymph # 2.8 [place] # 1.0 Eos # 0.4 Baso # 0.0 D-Dimer 0.65 Puncture Site R rad O2 Saturation 69.0 L ABG pH 7.36 ABG pCO2 63.0 H ABG pO2 39.0 L* ABG HCO3 36 H ABG Total CO2 38 H ABG Base Excess 11 H Tyree Test + FiO2 % 21.0 Sodium 136 Potassium 4.1 Chloride 94 L Carbon Dioxide 37 H Anion Gap 9.1 BUN 10 Creatinine 0.60 Estimated GFR (MDRD) 96.00 BUN/Creatinine Ratio 16.66 Glucose 134 H Calcium 10.0 Total Bilirubin 0.42 AST 10 L ALT 11 L Alkaline Phosphatase 33 L Total Creatine Kinase 27 Troponin I 0.0190 B-Natriuretic Peptide 298 H Total Protein 5.9 Albumin 2.9 L Globulin 3.0 Albumin/Globulin Ratio 0.97 Procalcitonin < 0.05 Urine Color Urine Clarity Urine pH Ur Specific Arnold Urine Protein Urine Glucose (UA) Urine Ketones Urine Blood Urine Nitrite Urine Bilirubin Urine Urobilinogen Ur Leukocyte Esterase Urine Microscopic WBC Ur Squamous Epith Cells 12/15/16 09:00 WBC RBC Hgb Hct MCV MCH MCHC RDW Coeff of Juan Plt Count Immature Gran % (Auto) Neut % (Auto) Lymph % (Auto) [place] % (Auto) Eos % (Auto) Baso % (Auto) Immature Gran # (Auto) Neut # Lymph # [place] # Eos # Baso # D-Dimer Puncture Site O2 Saturation ABG pH ABG pCO2 ABG pO2 ABG HCO3 ABG Total CO2 ABG Base Excess Tyree Test FiO2 % Sodium Potassium Chloride Carbon Dioxide Anion Gap BUN Creatinine Estimated GFR (MDRD) BUN/Creatinine Ratio Glucose Calcium Total Bilirubin AST ALT Alkaline Phosphatase Total Creatine Kinase Troponin I B-Natriuretic Peptide Total Protein Albumin Globulin Albumin/Globulin Ratio Procalcitonin Urine Color Yellow Urine Clarity Cloudy Urine pH 7.5 Ur Specific Arnold 1.020 Urine Protein 2+ Urine Glucose (UA) Negative Urine Ketones Negative Urine Blood Negative Urine Nitrite Positive Urine Bilirubin Negative Urine Urobilinogen 0.2 Ur Leukocyte Esterase 2+ Urine Microscopic WBC Tntc Ur Squamous Epith Cells Not present Orders Category Date Time Status ABG DRAW REQUEST Stat CARDIO 12/15/16 08:00 Completed EKG-(ED ONLY) Stat CARDIO 12/15/16 07:59 Completed ED APPLY O2 .ONCE EMERGENCY 12/15/16 07:59 Active ED CLINICAL INFORMATICIST APPLIED .ONCE EMERGENCY 12/15/16 07:59 Active ED IV/MEDIPORT/POWERPORT .ONCE EMERGENCY 12/15/16 09:08 Active ABG Stat LAB 12/15/16 07:59 Completed B-TYPE NATRIURETIC PEPTIDE Stat LAB 12/15/16 08:20 Completed BLOOD CULTURE Stat LAB 12/15/16 08:20 Ordered CBC W/ AUTO DIFF Stat LAB 12/15/16 08:20 Completed COMPREHENSIVE METABOLIC PANEL Stat LAB 12/15/16 08:20 Completed CREATINE KINASE Stat LAB 12/15/16 08:20 Completed D-DIMER Stat LAB 12/15/16 08:20 Completed PROCALCITONIN Stat LAB 12/15/16 08:29 Completed TROPONIN I Stat LAB 12/15/16 08:20 Completed URINALYSIS C & S IF INDICATED Stat LAB 12/15/16 09:00 Completed URINE CULTURE Stat LAB 12/15/16 09:26 Received 0.9 % Sodium Chloride [Saline Flush] MEDS 12/15/16 09:08 Active 1 syr IVF PRN PRN Furosemide [Lasix] MEDS 12/15/16 09:28 Discontinued 60 mg IVP ONCE STA Methylprednisolone Sod Succ/Pf [Solu-Medrol 125 mg] MEDS 12/15/16 09:32 Discontinued 125 mg IVP ONCE STA CHEST, 1V AP ONLY Stat RADS 12/15/16 07:59 Completed U/S VENOUS SCAN STEVE LEGS Stat RADS 12/15/16 08:00 Completed Medications Generic Name Dose Route Start Last Admin Trade Name Freq PRN Reason Stop Dose Admin Sodium Chloride 1 syr 12/15/16 09:08 12/15/16 09:48 Saline Flush IVF 1 syr PRN PRN Administration To flush IV Discontinued Medications Generic Name Dose Route Start Last Admin Trade Name Freq PRN Reason Stop Dose Admin Furosemide 60 mg 12/15/16 09:28 12/15/16 09:52 Lasix IVP 12/15/16 09:29 60 mg ONCE STA Administration Methylprednisolone Sodium Succinate 125 mg 12/15/16 09:32 12/15/16 09:52 Solu-Medrol 125 Mg IVP 12/15/16 09:33 125 mg ONCE STA Administration Vital Signs: Temp Pulse Resp BP Pulse Ox 12/15/16 08:00 98.7 F 86 28 H 147/64 H 77 L Departure - Departure Time of Disposition: 09:34 Disposition: TRANSFER SNF Discharge Problem: Pulmonary edema cardiac cause, Fluid retention in legs, Bacteriuria with pyuria Instructions: Heart Failure (ED), Pulmonary Edema (ED), Leg Edema (ED) Condition: Stable Pt referred to PMD for follow-up: Yes Additional Instructions: INCREASE LASIX TO TWICE A DAY CHECK WEIGHT TWICE A DAY FOR THREE DAYS THEN DAILY FOR TWO WEEKS THAN NEW ORDER FROM PMD INFORM PMD OF WEIGHT CHANGE DAILY FOR TWO DAYS THEN INSTRUCTED FOLLOW UP WITH PMD; RETURN IF CHEST PAIN OR FEVER OVER 101.0 OR IF WORSENING Prescriptions: Furosemide [Lasix] 20 mg PO BID #60 tablet Allergies/Adverse Reactions: Allergies paroxetine [From Paxil] Adverse Reaction (Unknown, Verified 12/15/16 08:05) Home Medications: Ambulatory Orders Aspirin [Aspirin Chewable] 81 mg PO QAM 02/25/14 Cholecalciferol (Vitamin D3) [Vitamin D3] 5,000 unit PO DAILY 01/01/16 Ipratropium/Albuterol Neb [Duoneb] 1 vial NEB RTBID 01/01/16 Levothyroxine Sodium [Synthroid] 175 mcg PO DAILY 01/01/16 Multivitamin [Multi-Vitamin Daily] 1 each PO DAILY 01/01/16 Diltiazem HCl [Cardizem] 60 mg PO Q12HR #60 tablet 01/05/16 Fenofibrate 160 mg PO QAM #30 tablet 01/05/16 Ropinirole HCl [Requip] 0.5 mg PO BEDTIME #30 tablet 01/05/16 Rosuvastatin Calcium [Crestor] 1 tab PO DAILY #30 tablet 01/05/16 Benazepril HCl [Lotensin] 40 mg PO DAILY #30 tablet 08/05/16 Furosemide [Lasix Tab] 20 mg PO MOWETHSA #16 tablet 08/05/16 Potassium Chloride [K-Dur] 10 meq PO MOWETHSA #16 tab 08/05/16 Acetaminophen [Mapap] 650 mg PO Q4H PRN 12/15/16 Carvedilol [Coreg] 12.5 mg PO BID 12/15/16 Furosemide [Lasix] 20 mg PO BID #60 tablet 12/15/16 Magnesium Oxide [Mag-Ox] 400 mg PO DAILY 12/15/16 Pantoprazole Sodium [Protonix] 40 mg PO DAILY 12/15/16 Polyethylene Glycol 3350 [Miralax] 17 gm PO DAILY PRN 12/15/16
[2016-12-15 08:32] LABS: BASOPHILS % (AUTO) 0.1 % (0.0-3.0); EOSINOPHILS # (AUTO) 0.4 K/ul (0.0-0.7); EOSINOPHILS % (AUTO) 2.7 % (0.0-7.0); HEMATOCRIT 33.5 % (37.0-47.0); HEMOGLOBIN 11.1 g/dl (12.0-16.0); IMMATURE GRANULOCYTE % (AUTO) 0.5 % (0.0-5.0); LYMPHOCYTES # (AUTO) 2.8 K/uL (0.60-3.4); LYMPHOCYTES % (AUTO) 18.5 (10.0-50.0); MEAN CORPUSCULAR HEMOGLOBIN 30.1 pg (27.0-31.0); MEAN CORPUSCULAR HGB CONC 33.1 (31.8-35.4); MEAN CORPUSCULAR VOLUME 90.8 fl (81.0-99.0); MONOCYTES % (AUTO) 6.8 (0-10); NEUTROPHILS # (AUTO) 10.6 K/ul (2.0-6.9); NEUTROPHILS % (AUTO) 71.4; PLATELET COUNT 287 10^3/uL (140-440); RED BLOOD COUNT 3.69 10^6/ul (4.20-5.40); WHITE BLOOD COUNT 14.89 K/ul (4.6-10.2)
--- NOTE | 2016-12-15 08:40 | DI ---
EXAM: Chest one view, frontal view only. HISTORY: Chest pain. COMPARISON: 11/14/2016. FINDINGS: Previously noted endotracheal tube has been removed. Heart is enlarged. Atherosclerotic calcifications present. Vascular congestion seen with increased interstitial markings in both lung s. Small left pleural effusion not excluded. No pneumothorax identified. No acute osseous abnorma lity is seen. IMPRESSION: Suspect mild pulmonary edema.
[2016-12-15 09:04] LABS: ALBUMIN 2.9 g/dL (3.4-5.0); ALBUMIN/GLOBULIN RATIO 0.97; ANION GAP 9.1; BILIRUBIN,TOTAL 0.42 mg/dL (0.00-1.20); BUN/CREATININE RATIO 16.66; CREATININE 0.6 mg/dL (0.60-1.30); POTASSIUM 4.1 mmol/L (3.5-5.10); TOTAL PROTEIN 5.9 g/dL (5.8-8.1); TROPONIN I 0.019 ng/ml (0.0000-0.4000)
[2016-12-15] MEDS ORDERED: LASIX IVP STA (09:08)
[2016-12-15 09:23] LABS: BILIRUBIN,URINE Negative (NEGATIVE); KETONES,URINE Negative (NEGATIVE); LEUKOCYTE ESTERASE ,URINE 2+ (NEGATIVE); NITRITE,URINE Positive (NEGATIVE); PH,URINE 7.5 (5-9); PROTEIN,URINE 2+ (NEGATIVE); URINE, BLOOD Negative (NEGATIVE)
[2016-12-15 09:25] LABS: ADD URINE MICROSCOPIC YES
--- NOTE | 2016-12-15 09:45 | US ---
EXAM: Bilateral lower extremity venous Doppler History: Bilateral lower extremity tenderness. Technique: Multiple sonographic images through the bilateral lower extremities were obtained. Purdy r duplex Doppler was used to interrogate vascular flow. Findings: The bilateral common femoral, greater saphenous, profunda, superficial femoral, popliteal , peroneal, posterior tibial and anterior tibial veins demonstrate spontaneous flow with normal comp ression and normal augmentation. Bilateral lower extremity subcutaneous edema. Impression: No sonographic evidence for deep venous thrombosis.
[2016-12-15] MEDS: LASIX IVP STA (09:52)
[2016-12-15] MEDS: SOLU-MEDROL 125 MG IVP STA (09:52)
[2016-12-17] MEDS ORDERED: SOLU-MEDROL 125 MG ONE (04:46)
== END 2016-12-15 11:28 ==
LOC: ED 07:48
DX: I50.1 Left ventricular failure, unspecified (principal); R60.0 Localized edema; N39.0 Urinary tract infection, site not specified; E03.9 Hypothyroidism, unspecified; E78.5 Hyperlipidemia, unspecified; I10 Essential (primary) hypertension; Z79.899 Other long term (current) drug therapy
CPT/HCPCS: 36415; 80053; 81001; 82550; 82803; 83880; 84145; 84484; 85025; 85379; 87040; 87086; 87186; 93005; 93010; 96374; 96375; 99283

== ENCOUNTER 2016-12-17 01:43 | Inpatient (IN) ==
--- NOTE | 2016-12-17 01:51 | ED.PDOC ---
General ED Provider: Dr. LOUIS MCKEON Chief Complaint: Chest Pain Stated Complaint: patient complain of chough and chest pain that started after she took her CPAP and oxygen off. Time Seen by Physician: 02:15 Information Source: Patient Exam Limitations: No limitations Primary Care Provider: AMARI DUMONT Nursing and Triage Documentation Reviewed and Agree: Yes Cardiovascular Complaint Exam - Chest Pain Complaint/Exam Onset: Gradual Symptoms Are: Still present Timing: Constant Length of Chest Pain Episodes: only with cough Initial Severity: Moderate Location: Reports: Midsternal Pain Radiates: Reports: None Character: Reports: Tightness Aggravating: Reports: None Alleviating: Reports: None Associated Signs and Symptoms: Reports: Cough, Short of air. Denies: Diaphoresis, Nausea, Vomiting, Fever, Palpitations, Hemoptysis, Back pain, Abdominal pain, Dizziness, Calf pain, Calf swelling AMI/ACS Risk Factors: Reports: None TAD Risk Factors: Reports: None Pulmonary Embolism Risk Factors: Reports: None Prior Care for this Complaint: Yes Recent Stress Test: No Recent Echo/LV Function: No JVD Present: No Subcutaneous Emphysema Present: No Reproducible Chest Wall Pain: No Review of Systems - Review Of Systems Constitutional: Reports: No symptoms Eyes: Reports: No symptoms Ears, Nose, Mouth, Throat: Reports: No symptoms Respiratory: Reports: Short of air, Wheezing Cardiac: Reports: Chest pain GI: Reports: No symptoms : Reports: No symptoms Musculoskeletal: Reports: No symptoms Skin: Reports: No symptoms Neurological: Reports: No symptoms Endocrine: Reports: No symptoms Hematologic/Lymphatic: Reports: No symptoms All Other Systems: Reviewed and Negative Past Medical History - Past Medical History Endocrine: Reports: Hypothyroid, Dyslipidemia Cardiovascular: Reports: Hypertension Respiratory: Reports: COPD, Other (Respiratory failure ) Hematological: Reports: None Gastrointestinal: Reports: None Genitourinary: Reports: None Neuro/Psych: Reports: Anxiety, Depression Musculoskeletal: Reports: Arthritis, Back Pain Cancer: Reports: None - Surgical History General Surgical History: Reports: Hysterectomy, Cholecystectomy, Other ( Thyroid ) - Family History Family History: Reports: Unknown - Social History Smoking Status: Never smoker Hx Substance Use: No Alcohol Screening: None Physical Exam - Physical Exam Appearance: Ill-appearing, Obese Ill-appearing: Severe Pain Distress: Moderate Eyes: PEGGY, EOMI, Conjunctiva clear Respiratory: Breath sounds diminished, Wheezes Cardiovascular: RRR, Pulses normal, No rub, No murmur GI/: Soft, Nontender, No masses, Bowel sounds normal, No Organomegaly Musculoskeletal: Normal strength, ROM intact, No edema, No calf tenderness Skin: Warm, Dry, Normal color Neurological: Sensation intact, Motor intact, Reflexes intact, Cranial nerves intact, Alert, Oriented Psychiatric: Anxious Interpretation - Radiology Interpretation Radiology Interpretation By: ED Physician Radiology Results: Positive (Copd Changes, Pneumonia) Exam Interpreted: Portable CXR Re-Evaluation - Re-Evaluation Time of Re-Evaluation: 02:50 Status: Improved (tolorating BIPAP well feels better. ) Critical Care Note - Critical Care Note Total Time (mins): 30 Course - Course Hematology/Chemistry: 12/17/16 01:55 12/17/16 01:55 Orders, Labs, Meds: Lab Review 12/17/16 12/17/16 12/17/16 01:49 01:55 02:15 WBC 15.17 H RBC 4.17 L Hgb 12.3 Hct 37.8 MCV 90.6 MCH 29.5 MCHC 32.5 RDW Coeff of Juan 14.0 Plt Count 343 Immature Gran % (Auto) 0.6 Neut % (Auto) 73.1 Lymph % (Auto) 14.4 [place] % (Auto) 11.5 H Eos % (Auto) 0.1 Baso % (Auto) 0.3 Immature Gran # (Auto) 0.1 Neut # 11.1 H Lymph # 2.2 [place] # 1.7 Eos # 0.0 Baso # 0.0 D-Dimer 0.61 Puncture Site Lb O2 Saturation 85.0 L ABG pH 7.335 L ABG pCO2 77.6 H ABG pO2 56.0 L* ABG HCO3 41.4 H ABG Total CO2 44 H ABG Base Excess 16 H Tyree Test + O2 Delivery Device Bnc Oxygen Liter Flow 4.00 FiO2 % 36.0 Sodium 134 L Potassium 4.1 Chloride 88 L Carbon Dioxide 39 H Anion Gap 11.1 BUN 17 Creatinine 0.77 Estimated GFR (MDRD) 72.00 BUN/Creatinine Ratio 22.07 Glucose 156 H Lactic Acid 9.1 Calcium 10.8 H Total Bilirubin 0.27 AST 23 ALT 23 Alkaline Phosphatase 39 L Total Creatine Kinase 28 Troponin I < 0.0100 B-Natriuretic Peptide 203 H Total Protein 6.7 Albumin 3.1 L Globulin 3.6 Albumin/Globulin Ratio 0.86 Procalcitonin < 0.05 12/17/16 02:40 WBC RBC Hgb Hct MCV MCH MCHC RDW Coeff of Juan Plt Count Immature Gran % (Auto) Neut % (Auto) Lymph % (Auto) [place] % (Auto) Eos % (Auto) Baso % (Auto) Immature Gran # (Auto) Neut # Lymph # [place] # Eos # Baso # D-Dimer Puncture Site Lb O2 Saturation 87.0 L ABG pH 7.353 ABG pCO2 76.8 H ABG pO2 58.0 L* ABG HCO3 42.7 H ABG Total CO2 45 H ABG Base Excess 17 H Tyree Test + O2 Delivery Device Bipap Oxygen Liter Flow FiO2 % 40.0 Sodium Potassium Chloride Carbon Dioxide Anion Gap BUN Creatinine Estimated GFR (MDRD) BUN/Creatinine Ratio Glucose Lactic Acid Calcium Total Bilirubin AST ALT Alkaline Phosphatase Total Creatine Kinase Troponin I B-Natriuretic Peptide Total Protein Albumin Globulin Albumin/Globulin Ratio Procalcitonin Orders Category Date Time Status ADMIT PATIENT INPATIENT .TO SCU (MONITORED BED) ADMISSION 12/17/16 02:47 Active ABG DRAW REQUEST DAILY@0600 CARDIO 12/18/16 06:00 Ordered ABG DRAW REQUEST DAILY@0600 CARDIO 12/19/16 06:00 Ordered ABG DRAW REQUEST DAILY@0600 CARDIO 12/20/16 06:00 Ordered ABG DRAW REQUEST Stat CARDIO 12/17/16 01:50 Completed ABG DRAW REQUEST Stat CARDIO 12/17/16 02:40 Completed BIPAP Routine CARDIO 12/17/16 02:43 Active EKG-(ED ONLY) Stat CARDIO 12/17/16 01:49 Completed NEBULIZER TREATMENT Routine CARDIO 12/17/16 02:53 Active NEBULIZER TREATMENT Stat CARDIO 12/17/16 02:07 Completed OXYGEN Routine CARDIO 12/17/16 02:47 Active ACTIVITY .BR with BRP CARE 12/17/16 02:48 Active BLOOD GLUCOSE MONITORING 0630,1100,1700,2100 CARE 12/17/16 02:50 Active INTAKE & OUTPUT Q8HR CARE 12/17/16 02:47 Active TELEMETRY MONITORING TELE CARE 12/17/16 02:48 Active VITAL SIGNS Q4HR CARE 12/17/16 02:48 Active 2 GRAM SODIUM DIET DIETARY 12/17/16 Breakfast Ordered ED APPLY O2 .ONCE EMERGENCY 12/17/16 01:49 Active ED FIRST AID ATTENDANT APPLIED .ONCE EMERGENCY 12/17/16 01:49 Active ED IV/MEDIPORT/POWERPORT .ONCE EMERGENCY 12/17/16 01:49 Active ABG DAILY@0600 LAB 12/17/16 06:00 Completed ABG DAILY@0600 LAB 12/18/16 06:00 Ordered ABG DAILY@0600 LAB 12/19/16 06:00 Ordered ABG DAILY@0600 LAB 12/20/16 06:00 Ordered ABG Stat LAB 12/17/16 01:49 Completed ABG Stat LAB 12/17/16 02:40 Completed B-TYPE NATRIURETIC PEPTIDE Stat LAB 12/17/16 01:55 Completed BLOOD CULTURE Stat LAB 12/17/16 02:15 Received CBC W/ AUTO DIFF DAILY@0600 LAB 12/18/16 06:00 Ordered CBC W/ AUTO DIFF DAILY@0600 LAB 12/19/16 06:00 Ordered CBC W/ AUTO DIFF DAILY@0600 LAB 12/20/16 06:00 Ordered CBC W/ AUTO DIFF DAILY@0600 LAB 12/21/16 06:00 Ordered CBC W/ AUTO DIFF DAILY@0600 LAB 12/22/16 06:00 Ordered CBC W/ AUTO DIFF DAILY@0600 LAB 12/23/16 06:00 Ordered CBC W/ AUTO DIFF DAILY@0600 LAB 12/24/16 06:00 Ordered CBC W/ AUTO DIFF DAILY@0600 LAB 12/25/16 06:00 Ordered CBC W/ AUTO DIFF DAILY@0600 LAB 12/26/16 06:00 Ordered CBC W/ AUTO DIFF DAILY@0600 LAB 12/27/16 06:00 Ordered CBC W/ AUTO DIFF DAILY@0600 LAB 12/28/16 06:00 Ordered CBC W/ AUTO DIFF DAILY@0600 LAB 12/29/16 06:00 Ordered CBC W/ AUTO DIFF DAILY@0600 LAB 12/30/16 06:00 Ordered CBC W/ AUTO DIFF DAILY@0600 LAB 12/31/16 06:00 Ordered CBC W/ AUTO DIFF DAILY@0600 LAB 01/01/17 06:00 Ordered CBC W/ AUTO DIFF DAILY@0600 LAB 01/02/17 06:00 Ordered CBC W/ AUTO DIFF DAILY@0600 LAB 01/03/17 06:00 Ordered CBC W/ AUTO DIFF DAILY@0600 LAB 01/04/17 06:00 Ordered CBC W/ AUTO DIFF DAILY@0600 LAB 01/05/17 06:00 Ordered CBC W/ AUTO DIFF Stat LAB 12/17/16 01:55 Completed COMPREHENSIVE METABOLIC PANEL DAILY@0600 LAB 12/18/16 06:00 Ordered COMPREHENSIVE METABOLIC PANEL DAILY@0600 LAB 12/19/16 06:00 Ordered COMPREHENSIVE METABOLIC PANEL DAILY@0600 LAB 12/20/16 06:00 Ordered COMPREHENSIVE METABOLIC PANEL DAILY@0600 LAB 12/21/16 06:00 Ordered COMPREHENSIVE METABOLIC PANEL DAILY@0600 LAB 12/22/16 06:00 Ordered COMPREHENSIVE METABOLIC PANEL DAILY@0600 LAB 12/23/16 06:00 Ordered COMPREHENSIVE METABOLIC PANEL DAILY@0600 LAB 12/24/16 06:00 Ordered COMPREHENSIVE METABOLIC PANEL DAILY@0600 LAB 12/25/16 06:00 Ordered COMPREHENSIVE METABOLIC PANEL DAILY@0600 LAB 12/26/16 06:00 Ordered COMPREHENSIVE METABOLIC PANEL DAILY@0600 LAB 12/27/16 06:00 Ordered COMPREHENSIVE METABOLIC PANEL DAILY@0600 LAB 12/28/16 06:00 Ordered COMPREHENSIVE METABOLIC PANEL DAILY@0600 LAB 12/29/16 06:00 Ordered COMPREHENSIVE METABOLIC PANEL DAILY@0600 LAB 12/30/16 06:00 Ordered COMPREHENSIVE METABOLIC PANEL DAILY@0600 LAB 12/31/16 06:00 Ordered COMPREHENSIVE METABOLIC PANEL DAILY@0600 LAB 01/01/17 06:00 Ordered COMPREHENSIVE METABOLIC PANEL DAILY@0600 LAB 01/02/17 06:00 Ordered COMPREHENSIVE METABOLIC PANEL DAILY@0600 LAB 01/03/17 06:00 Ordered COMPREHENSIVE METABOLIC PANEL DAILY@0600 LAB 01/04/17 06:00 Ordered COMPREHENSIVE METABOLIC PANEL DAILY@0600 LAB 01/05/17 06:00 Ordered COMPREHENSIVE METABOLIC PANEL Stat LAB 12/17/16 01:55 Completed CREATINE KINASE Q8H LAB 12/17/16 09:00 Ordered CREATINE KINASE Q8H LAB 12/17/16 17:00 Ordered CREATINE KINASE Stat LAB 12/17/16 01:55 Completed D-DIMER Stat LAB 12/17/16 01:55 Completed LACTIC ACID Stat LAB 12/17/16 02:15 Completed PROCALCITONIN Stat LAB 12/17/16 02:15 Completed TROPONIN I Q8H LAB 12/17/16 09:00 Ordered TROPONIN I Q8H LAB 12/17/16 17:00 Ordered TROPONIN I Stat LAB 12/17/16 01:55 Completed 0.9 % Sodium Chloride [Saline Flush] MEDS 12/17/16 01:49 Ordered 1 syr IVF PRN PRN Acetaminophen [Tylenol] MEDS 12/17/16 02:44 Ordered 650 mg PO Q4H PRN Acetaminophen [Tylenol] MEDS 12/17/16 02:47 Ordered 650 mg PO Q4H PRN Aspirin [Aspirin Chewable] MEDS 12/17/16 09:00 Ordered 81 mg PO QAM Benazepril HCl [Lotensin] MEDS 12/17/16 09:00 Ordered 40 mg PO DAILY Carvedilol [Coreg] MEDS 12/17/16 09:00 Ordered 12.5 mg PO BID Cholecalciferol (Vitamin D3) [Vitamin D3] MEDS 12/17/16 09:00 Ordered 5,000 unit PO DAILY Diltiazem HCl [Cardizem] MEDS 12/17/16 09:00 Ordered 60 mg PO Q12HR Enoxaparin Sodium [Lovenox] MEDS 12/17/16 09:00 Ordered 40 mg SUBCUT DAILY Fenofibrate [Triglide] MEDS 12/17/16 09:00 Ordered 160 mg PO QAM Furosemide [Lasix Tab] MEDS 12/17/16 09:00 Ordered 20 mg PO BID Furosemide [Lasix Tab] MEDS 12/18/16 02:44 Ordered 20 mg PO MOWETHSA Ipratropium/Albuterol Neb [Duoneb] MEDS 12/17/16 02:07 Discontinued 1 vial NEB ONCE STA Ipratropium/Albuterol Neb [Duoneb] MEDS 12/17/16 02:47 Ordered 1 vial NEB RTQ2H PRN Ipratropium/Albuterol Neb [Duoneb] MEDS 12/17/16 02:47 Discontinued 1 vial NEB RTQ4H PRN Levofloxacin/D5w [Levaquin] 100 ml MEDS 12/17/16 03:07 Discontinued IV .STK-MED Levofloxacin/D5w [Levaquin] 500 mg MEDS 12/18/16 09:00 Ordered Premix 100 ml D5w 1 bag IV DAILY Levofloxacin/D5w [Levaquin] 500 mg MEDS 12/17/16 02:55 Discontinued Premix 100 ml D5w 1 bag IV ONCE Levothyroxine Sodium [Synthroid] MEDS 12/17/16 09:00 Ordered 175 mcg PO DAILY Magnesium Oxide [Mag-Ox] MEDS 12/17/16 09:00 Ordered 400 mg PO DAILY Methylprednisolone Sod Succ/Pf [Solu-Medrol 125 mg] MEDS 12/17/16 02:07 Discontinued 125 mg IVP ONCE STA Methylprednisolone Sod Succ/Pf [Solu-Medrol 125 mg] MEDS 12/17/16 05:00 Ordered 125 mg IVP Q8HR Morphine Sulfate [Morphine 2 mg/ml Syringe] MEDS 12/17/16 02:47 Ordered 2 mg IVP Q4H PRN Multivitamin [Multi-Vitamin Daily] MEDS 12/17/16 09:00 Ordered 1 each PO DAILY Ondansetron HCl/Pf [Zofran 4 mg/2 ml] MEDS 12/17/16 02:47 Ordered 4 mg IVP Q6H PRN Pantoprazole Sodium [Protonix] MEDS 12/17/16 09:00 Ordered 40 mg PO DAILY Polyethylene Glycol 3350 [Miralax] MEDS 12/17/16 02:44 Ordered 17 gm PO DAILY PRN Potassium Chloride [K-Dur] MEDS 12/18/16 02:44 Ordered 10 meq PO MOWETHSA Ropinirole HCl [Requip] MEDS 12/17/16 21:00 Ordered 0.5 mg PO BEDTIME Rosuvastatin Calcium [Crestor] MEDS 12/17/16 09:00 Ordered 1 tab PO DAILY RESUSCITATION STATUS Routine OTHERS 12/17/16 02:47 Ordered CHEST, 1V AP ONLY Stat RADS 12/17/16 01:49 Completed Medications Generic Name Dose Route Start Last Admin Trade Name Freq PRN Reason Stop Dose Admin Acetaminophen 650 mg 12/17/16 02:44 Tylenol PO Q4H PRN Fever >101 Acetaminophen 650 mg 12/17/16 02:47 Tylenol PO Q4H PRN pain or fever Albuterol/Ipratropium 1 vial 12/17/16 02:47 Duoneb NEB RTQ2H PRN Wheezing Albuterol/Ipratropium 1 vial 12/17/16 06:00 12/17/16 05:33 Duoneb NEB 1 vial RTQ4H RALPH Administration Aspirin 81 mg 12/17/16 09:00 Aspirin Chewable PO QAM RALPH Benazepril HCl 40 mg 12/17/16 09:00 Lotensin PO DAILY RALPH Carvedilol 12.5 mg 12/17/16 09:00 Coreg PO BID [facility] Diltiazem HCl 60 mg 12/17/16 09:00 Cardizem PO Q12HR [facility] Enoxaparin Sodium 40 mg 12/17/16 09:00 Lovenox SUBCUT DAILY [facility] Fenofibrate 160 mg 12/17/16 09:00 Triglide PO QAM [facility] Furosemide 20 mg 12/17/16 09:00 Lasix Tab PO BID [facility] Furosemide 20 mg 12/18/16 02:44 Lasix Tab PO MOWETHSA [facility] Levofloxacin/Dextrose 500 mg/ 100 mls @ 100 mls/hr 12/18/16 09:00 Dextrose IV DAILY [facility] Magnesium Oxide 400 mg 12/17/16 09:00 Mag-Ox PO DAILY [facility] Methylprednisolone Sodium Succinate 125 mg 12/17/16 05:00 12/17/16 05:04 Solu-Medrol 125 Mg IVP 125 mg Q8HR RALPH Administration Morphine Sulfate 2 mg 12/17/16 02:47 Morphine 2 Mg/Ml Syringe IVP Q4H PRN Severe Pain Non-Formulary Medication 5,000 unit 12/17/16 09:00 Cholecalciferol (Vitamin D3) [Vitamin D3] PO DAILY [facility] Non-Formulary Medication 175 mcg 12/17/16 09:00 Levothyroxine Sodium [Synthroid] PO DAILY [facility] Non-Formulary Medication 1 each 12/17/16 09:00 Multivitamin [Multi-Vitamin Daily] PO DAILY [facility] Non-Formulary Medication 0.5 mg 12/17/16 21:00 Ropinirole Hcl [Requip] PO BEDTIME [facility] Non-Formulary Medication 1 tab 12/17/16 09:00 Rosuvastatin Calcium [Crestor] PO DAILY [facility] Ondansetron HCl 4 mg 12/17/16 02:47 Zofran 4 Mg/2 Ml IVP Q6H PRN Nausea / Vomiting Pantoprazole Sodium 40 mg 12/17/16 09:00 Protonix PO DAILY [facility] Polyethylene Glycol 17 gm 12/17/16 02:44 Miralax PO DAILY PRN Constipation Potassium Chloride 10 meq 12/18/16 02:44 K-Dur PO MOWETHSA [facility] Sodium Chloride 1 syr 12/17/16 01:49 12/17/16 05:04 Saline Flush IVF 1 syr PRN PRN Administration To flush IV Discontinued Medications Generic Name Dose Route Start Last Admin Trade Name Diana PRN Reason Stop Dose Admin Albuterol/Ipratropium 1 vial 12/17/16 02:07 12/17/16 02:20 Duoneb NEB 12/17/16 02:08 1 vial ONCE STA Administration Albuterol/Ipratropium 1 vial 12/17/16 02:47 Duoneb NEB RTQ4H PRN Wheezing Levofloxacin/Dextrose 500 mg/ 100 mls @ 100 mls/hr 12/17/16 02:55 12/17/16 03 :15 Dextrose IV 12/17/16 03:54 100 mls/hr ONCE STA Administration Methylprednisolone Sodium Succinate 125 mg 12/17/16 02:07 12/17/16 02:18 Solu-Medrol 125 Mg IVP 12/17/16 02:08 125 mg ONCE STA Administration Vital Signs: Temp Pulse Resp BP Pulse Ox 12/17/16 02:30 90 L 12/17/16 01:45 98.3 F 80 24 143/64 H 68 L MCKENNA Risk Score MCKENNA Risk Score: Risk Score Odds of by 30D 0 0.1 (0.1-0.2) 1 0.3 (0.2-0.3) 2 0.4 (0.3-0.5) 3 0.7 (0.6-0.9) 4 1.2 (1.0-1.5) 5 2.2 (1.9-2.6) 6 3.0 (2.5-3.6) 7 4.8 (3.8-6.1) Departure - Departure Time of Disposition: 02:58 Disposition: ADMITTED INPATIENT Discharge Problem: COPD exacerbation Pneumonia Qualifiers: Pneumonia type: due to unspecified organism Laterality: unspecified laterality Lung location: unspecified part of lung Qualifier Code: (J18.9) Pneumonia, unspecified organism Condition: Stable Pt referred to PMD for follow-up: No Allergies/Adverse Reactions: Allergies paroxetine [From Paxil] Adverse Reaction (Unknown, Verified 12/15/16 08:05) Home Medications: Ambulatory Orders Aspirin [Aspirin Chewable] 81 mg PO QAM 02/25/14 Cholecalciferol (Vitamin D3) [Vitamin D3] 5,000 unit PO DAILY 01/01/16 Levothyroxine Sodium [Synthroid] 175 mcg PO DAILY 01/01/16 Multivitamin [Multi-Vitamin Daily] 1 each PO DAILY 01/01/16 Diltiazem HCl [Cardizem] 60 mg PO Q12HR #60 tablet 01/05/16 Fenofibrate 160 mg PO QAM #30 tablet 01/05/16 Ropinirole HCl [Requip] 0.5 mg PO BEDTIME #30 tablet 01/05/16 Rosuvastatin Calcium [Crestor] 1 tab PO DAILY #30 tablet 01/05/16 Benazepril HCl [Lotensin] 40 mg PO DAILY #30 tablet 08/05/16 Acetaminophen [Mapap] 650 mg PO Q4H PRN 12/15/16 Carvedilol [Coreg] 12.5 mg PO BID 12/15/16 Magnesium Oxide [Mag-Ox] 400 mg PO DAILY 12/15/16 Pantoprazole Sodium [Protonix] 40 mg PO DAILY 12/15/16 Polyethylene Glycol 3350 [Miralax] 17 gm PO DAILY PRN 12/15/16 Furosemide 20 mg PO DIRECTED 12/17/16 Ipratropium/Albuterol Sulfate [Iprat-Albut 0.5-3(2.5) mg/3 ml] 1 vial INH Q2HR PRN 12/17/16 Ipratropium/Albuterol Sulfate [Iprat-Albut 0.5-3(2.5) mg/3 ml] 1 vial INH RTQ6H 12/17/16 Potassium Chloride [K-Tab ER] 10 meq PO DIRECTED 12/17/16
[2016-12-17 01:56] LABS: ABG PH 7.335 (7.35-7.45)
[2016-12-17 02:00] LABS: ABG BASE EXCESS 16 (-2.0-2.0); ABG PCO2 77.6 mmHg (35-45); ABG TCO2 44 (22.0-28.0)
[2016-12-17 02:05] LABS: BASOPHILS % (AUTO) 0.3 % (0.0-3.0); EOSINOPHILS % (AUTO) 0.1 % (0.0-7.0); HEMATOCRIT 37.8 % (37.0-47.0); HEMOGLOBIN 12.3 g/dl (12.0-16.0); IMMATURE GRANULOCYTE % (AUTO) 0.6 % (0.0-5.0); LYMPHOCYTES # (AUTO) 2.2 K/uL (0.60-3.4); LYMPHOCYTES % (AUTO) 14.4 (10.0-50.0); MEAN CORPUSCULAR HEMOGLOBIN 29.5 pg (27.0-31.0); MEAN CORPUSCULAR HGB CONC 32.5 (31.8-35.4); MEAN CORPUSCULAR VOLUME 90.6 fl (81.0-99.0); MONOCYTES # (AUTO) 1.7 K/uL (0.4-2.0); MONOCYTES % (AUTO) 11.5 (0-10); NEUTROPHILS # (AUTO) 11.1 K/ul (2.0-6.9); NEUTROPHILS % (AUTO) 73.1; PLATELET COUNT 343 10^3/uL (140-440); RED BLOOD COUNT 4.17 10^6/ul (4.20-5.40); WHITE BLOOD COUNT 15.17 K/ul (4.6-10.2)
[2016-12-17] MEDS ORDERED: DUONEB NEB STA (02:07)
[2016-12-17] MEDS ORDERED: SOLU-MEDROL 125 MG IVP STA (02:07)
--- NOTE | 2016-12-17 02:16 | DI ---
EXAM: AP single view of the chest. HISTORY: Cough. FINDINGS: The bones are unremarkable. The cardiac silhouette is enlarged. Pulmonary vasculature is within normal limits. The costophrenic angles are clear. There is minimal bibasilar atelectasis and /or pneumonia. Impression: Minimal bibasilar atelectasis and/or pneumonia. Cardiomegaly.
[2016-12-17 02:40] LABS: ABG HCO3 41.4 (22.0-26.0)
[2016-12-17 02:41] LABS: ALANINE AMINOTRANSFERASE 23 U/L (12-78); ALBUMIN 3.1 g/dL (3.4-5.0); ALBUMIN/GLOBULIN RATIO 0.86; ALKALINE PHOSPHATASE 39 U/L (53-141); ANION GAP 11.1; ASPARTATE AMINO TRANSFERASE 23 U/L (15-37); BILIRUBIN,TOTAL 0.27 mg/dL (0.00-1.20); BLOOD UREA NITROGEN 17 mg/dL (7-18); BUN/CREATININE RATIO 22.07; CALCIUM 10.8 mg/dL (8.2-10.2); CARBON DIOXIDE 39 mmol/L (23-31); CHLORIDE 88 mmol/L (98-107); CREATINE KINASE 28 U/L; CREATININE 0.77 mg/dL (0.60-1.30); GLUCOSE 156 mg/dL (82-115); POTASSIUM 4.1 mmol/L (3.5-5.10); SODIUM 134 mmol/L (136-145); TOTAL PROTEIN 6.7 g/dL (5.8-8.1)
[2016-12-17] MEDS ORDERED: MIRALAX PO PRN (02:44)
[2016-12-17] MEDS ORDERED: TYLENOL PO PRN ×2 (02:44→02:47)
[2016-12-17] MEDS ORDERED: DUONEB NEB PRN ×2 (02:47)
[2016-12-17] MEDS ORDERED: ZOFRAN 4 MG/2 ML IVP PRN (02:47)
[2016-12-17] MEDS ORDERED: MORPHINE 2 MG/ML SYRINGE IVP PRN (02:47)
[2016-12-17] MEDS ORDERED: LEVAQUIN 500 MG in PREMIX 100 ML D5W 1 BAG IV STA (02:55)
[2016-12-17] MEDS ORDERED: LEVAQUIN 100 ML IV ONE (03:07)
[2016-12-17 03:57] LABS: ABG PH 7.353 (7.35-7.45)
[2016-12-17 03:58] LABS: ABG BASE EXCESS 17 (-2.0-2.0); ABG HCO3 42.7 (22.0-26.0); ABG PCO2 76.8 mmHg (35-45); ABG TCO2 45 (22.0-28.0)
[2016-12-17] MEDS: SOLU-MEDROL 125 MG IVP SCH ×2 (05:04→12:28)
[2016-12-17 05:20] VITALS: BMI 41.3
[2016-12-17] MEDS: DUONEB NEB SCH ×2 (05:33→10:02)
[2016-12-17 06:35] LABS: ABG PH 7.358 (7.35-7.45)
[2016-12-17 06:37] LABS: ABG PCO2 73.8 mmHg (35-45)
[2016-12-17 06:38] LABS: ABG BASE EXCESS 16 (-2.0-2.0); ABG HCO3 41.5 (22.0-26.0); ABG TCO2 44 (22.0-28.0)
[2016-12-17] MEDS ORDERED: ASPIRIN CHEWABLE PO SCH (08:00)
[2016-12-17] MEDS ORDERED: COREG PO SCH (08:00)
[2016-12-17 08:39] LABS: ABG PCO2 80.5 mmHg (35-45); ABG PH 7.347 (7.35-7.45)
[2016-12-17 08:40] LABS: ABG BASE EXCESS 18 (-2.0-2.0); ABG HCO3 44.1 (22.0-26.0); ABG TCO2 47 (22.0-28.0)
[2016-12-17] MEDS ORDERED: LASIX IVP STA (08:56)
[2016-12-17] MEDS ORDERED: NON-FORMULARY MEDICATION (Levothyroxine Sodium [Synthroid] 175 MCG) PO SCH ×22 (09:00)
[2016-12-17] MEDS ORDERED: NON-FORMULARY MEDICATION (Multivitamin [Multi-Vitamin Daily] 1 EACH) PO SCH ×22 (09:00)
[2016-12-17] MEDS ORDERED: LOTENSIN PO SCH (09:00)
[2016-12-17] MEDS ORDERED: CARDIZEM PO SCH (09:00)
[2016-12-17] MEDS ORDERED: PROTONIX PO SCH (09:00)
[2016-12-17] MEDS ORDERED: NON-FORMULARY MEDICATION (Cholecalciferol (Vitamin D3) [Vitamin D3] 5,000 UNIT) PO SCH ×22 (09:00)
[2016-12-17] MEDS ORDERED: LOVENOX SUBCUT SCH (09:00)
[2016-12-17] MEDS ORDERED: MULTIVITAMIN PO SCH (09:00)
[2016-12-17] MEDS ORDERED: CRESTOR PO SCH (09:00)
[2016-12-17] MEDS ORDERED: MAG-OX PO SCH (09:00)
[2016-12-17] MEDS ORDERED: NON-FORMULARY MEDICATION (Rosuvastatin Calcium [Crestor] 1 TAB) PO SCH ×22 (09:00)
[2016-12-17] MEDS ORDERED: TRIGLIDE PO SCH (09:00)
[2016-12-17] MEDS ORDERED: VITAMIN D PO SCH (09:00)
[2016-12-17] MEDS ORDERED: LASIX TAB PO SCH (09:00)
[2016-12-17] MEDS ORDERED: SYNTHROID PO SCH ×2 (09:00)
[2016-12-17] MEDS ORDERED: SYNTHROID IVP STA (09:09)
[2016-12-17 09:38] LABS: CREATINE KINASE 12 U/L
[2016-12-17 11:12] LABS: ABG PH 7.416 (7.35-7.45)
[2016-12-17 11:13] LABS: ABG BASE EXCESS 19 (-2.0-2.0); ABG HCO3 43 (22.0-26.0); ABG TCO2 45 (22.0-28.0)
--- NOTE | 2016-12-17 11:22 | HP ---
DATE OF SERVICE: 12/17/16 CHIEF COMPLAINT: Shortness of breath. HISTORY OF PRESENT ILLNESS: This is a 81-year-old female, who is a senior care resident. She was becoming more short of breath with cough and congestion with yellow-green sputum production. She was seen by Dr. Roman the day before for the same reason and was discharged from the emergency room. She had to come back as she was not wearing her CPAP and was more confused and not responding. She was seen by Dr. Howard. The patient was brought by senior care staff as the patient was more unresponsive. Dr. Howard saw the patient. ABG showed pH 7.335, pc02 77.6, p02 56. Chest x-ray was done showing minimal bibasilar atelectasis or pneumonia; cardiomegaly. At that time, the patient was put on BIPAP and repeat ABGs showed slight improvement of hypercapnia and hypoxemia. At that time, the patient is admitted to [facility] for acute respiratory failure with hypercapnic respiratory failure secondary to pneumonia, health care facility acquired. REVIEW OF SYSTEMS: CONSTITUTIONAL: Weakness, tiredness. No fever, no chills. HEENT: Normal. ENDOCRINE: No weight gain; no weight loss. CVS: No chest pain. No PND, no orthopnea. Shortness of breath. Worsening leg edema. RESPIRATORY: Cough and congestion. No hemoptysis. GI: No nausea, no vomiting. No abdominal pain. No melena. : No hematuria. No polyuria. MUSCULOSKELETAL: No joint swelling. PSYCHIATRIC: Change in mental status. Not anxious. No depression. No suicidal thoughts. No homicidal thoughts. SKIN: Intact, no open lesions. 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 Family history is not significant for the heart problems. MEDICATIONS: (HOME) Aspirin Vitamin D3 Synthroid Multivitamin Cardizem 60 Requip Fenofibrate Crestor Lotensin Protonix Miralax Magnesium Oxide Coreg Tylenol Duonebs Lasix Potassium ALLERGIES: PAROXETINE PHYSICAL EXAMINATION: V/S: BP 132/58, respiratory rate 22, heart rate 62, temperature 97.8, 87 to 92 sats on bipap. Responds to verbal stimuli and goes back to sleep. HEENT: Atraumatic, normocephalic. No scleral icterus. No pallor. NECK: Supple. No JVD, no bruit. No lymphadenopathy. No thyromegaly. HEART: S1, S2 normal. No murmur. No cyanosis or clubbing. No ascites. LUNGS: Decreased basilar crackles. ABDOMEN: Soft, nontender. Bowel sounds are active. No CVA tenderness. No rigidity or guarding. EXTREMITIES: No cyanosis, clubbing. 1 to 2+ pedal edema. MUSCULOSKELETAL: Normal joints, no swelling. NEUROLOGIC: The patient is awake, alert. Motor cannot be assessed secondary to the patient being on CPAP and not completely awake. SKIN: Intact; no open lesions. LYMPHATIC: No lymph nodes palpable. LABS: Sodium 134, potassium 4.1, chloride 88, bicarb 39, BUN 17, creatinine 0.77. White count 15.17, hemoglobin 12.3, hematocrit 7.8, platelet count 343. ABG - the latest one is PH 7.347, pc02 80.5, p02 56 on BIPAP 40. ASSESSMENT: 1. HYPERCAPNIC RESPIRATORY FAILURE/HYPOXEMIC RESPIRATORY FAILURE SECONDARY TO HEALTH CARE FACILITY ACQUIRED PNEUMONIA 2. C02 NARCOSIS 3. CHANGE IN MENTAL STATUS 4. HISTORY OF DIASTOLIC HEART FAILURE 5. COR PULMONALE 6. HYPERTENSION 7. DEPENDENT EDEMA 8. DEPRESSION 9. SCHIZOPHRENIA 10. 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 Will change the CPAP setting - rate will increase to 22 2. Lasix 60 mg IV push 3. Duonebs 4. Continue Solu-Medrol 125 q.8hr 5. Will start patient on Rocephin 1 gm daily and Vancomycin 1 gm daily 6. In view of complicated history of the patient's frequent intubation, I would like her to be transferred to higher care, which will be discussed with the family. [facility]
[2016-12-17 14:05] VITALS: BP 124/74; TEMP 97.2
[2016-12-17] MEDS ORDERED: REQUIP PO SCH (21:00)
[2016-12-17] MEDS ORDERED: NON-FORMULARY MEDICATION (Ropinirole Hcl [Requip] 0.5 MG) PO SCH (21:00)
[2016-12-18] MEDS ORDERED: K-DUR PO SCH (02:44)
[2016-12-18] MEDS ORDERED: LASIX TAB PO SCH (06:30)
[2016-12-18] MEDS ORDERED: MICRO-K CAP PO SCH (09:00)
[2016-12-18] MEDS ORDERED: LEVAQUIN 500 MG in PREMIX 100 ML D5W 1 BAG IV SCH (21:00)
--- NOTE | 2017-01-05 11:39 | DS ---
DATE OF SERVICE: 12/17/16 FINAL DIAGNOSIS: 1. Hypercapnic respiratory failure/hypoxemic respiratory failure secondary to health care facility acquired pneumonia 2. CO2 Narcosis 3. Change in mental status 4. History fo diastolic heart failure 5. Cor Pulmonale 6. Hypertension 7. Dependent Edema 8. Depression 9. 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. MEDICATIONS AT DISCHARGE: Aspirin Vitamin D3 Synthroid Multi-vitamin Cardizem Requip Fenofibrate Crestor Lotensin Protonix Miralax Mag-OX Coreg Mapap Iprat-Albut Q 2 hours PRN Furosemide Iprat-Albut Q 6 hours K-tab ER NEW PRESCRIPTIONS: N/A DIET INSTRUCTIONS: As tolerated ACTIVITY: As tolerated SMOKING: Non-smoker DISEASE SPECIFIC EDUCATION: Medications Transfer BIPAP Head Catheter HOSPITAL COURSE: The patient was admitted from the emergency room for the acute hypercapnic and hypoxic respiratory failure from the COPD exacerbation and with the health care facility acquired pneumonia. The patient was put on the BIPAP and started on the antibiotics. Solu-Medrol 125 four times a day started, Levofloxacin was given and Lovenox for the DVT prophylaxis. Lasix 60mg IVP was given one dose. The patient's pCO2 came down to 73 and up again to 80. At that time [facility] was called and the meanwhile the CPAP setting were increased to the respiratory rate to 424 from the 18 because the patient has a complex COPD with the CHF with diastolic heart failure problems where she has to be intubated a couple of times and the patient's family wants a full code on her. In review of in pending intubation and complicated cardio pulmonary case the patient is being transferred to the [facility]. [facility] was courteous enough to accept the patient without any problem. TRACID
== END 2016-12-17 14:32 | disposition short-term general hospital (02) | DRG 190 ==
LOC: ED 01:43 → SCU 04:31
PROVIDERS: ADMIT Emergency Medicine; ATTEND Emergency Medicine
DX: J44.1 Chronic obstructive pulmonary disease with (acute) exacerbation (principal); J18.9 Pneumonia, unspecified organism; J96.01 Acute respiratory failure with hypoxia; I50.32 Chronic diastolic (congestive) heart failure; I51.7 Cardiomegaly; R06.02 Shortness of breath; I10 Essential (primary) hypertension; R41.82 Altered mental status, unspecified; I27.81 Cor pulmonale (chronic); R60.0 Localized edema; F32.9 Major depressive disorder, single episode, unspecified; F20.9 Schizophrenia, unspecified; M19.90 Unspecified osteoarthritis, unspecified site; M47.9 Spondylosis, unspecified; Y95 Nosocomial condition; Z79.899 Other long term (current) drug therapy; Z99.89 Dependence on other enabling machines and devices
CPT/HCPCS: 36415; 80053; 82550; 82803; 82962; 83605; 83880; 84145; 84484; 85025; 85379; 87040; 93005; 93010; 94640; 94660; 96365; 96375; 99284

== ENCOUNTER 2016-12-17 14:32 | Outpatient (CLI) ==
[2016-12-17 05:20] VITALS: BMI 41.3
== END 2016-12-17 14:33 ==
LOC: AMBL 14:32
PROVIDERS: ATTEND Emergency Medicine
DX: J44.1 Chronic obstructive pulmonary disease with (acute) exacerbation (principal); J18.9 Pneumonia, unspecified organism

== ENCOUNTER 2016-12-22 12:04 | Outpatient (CLI) ==
[2016-12-22 12:35] VITALS: BMI 39.8
== END 2016-12-22 12:05 ==
LOC: AMBL 12:04
PROVIDERS: ATTEND Emergency Medicine
DX: R40.4 Transient alteration of awareness (principal); J18.9 Pneumonia, unspecified organism; R09.02 Hypoxemia; R41.0 Disorientation, unspecified

== ENCOUNTER 2016-12-22 12:14 | Emergency (ER) ==
--- NOTE | 2016-12-22 12:30 | ED.PDOC ---
General ED Provider: Dr. LEVON MURRAY JR Chief Complaint: Altered Mental Status Stated Complaint: sent [place] due to altered mental status--pt is slow to respond-will try to open eyes when name called--will occ move limbs with purpose --just released from [facility] late last pm--[facility] with pneumonia--also noted has sl tremor to arms at intervals. [ End ] Time Seen by Physician: 12:30 Mode of Arrival: Stretcher Information Source: Patient Exam Limitations: No limitations Primary Care Provider: AMARI DUMONT Nursing and Triage Documentation Reviewed and Agree: No Review of Systems - Review Of Systems Constitutional: Reports: Weakness, Other Eyes: Reports: No symptoms Ears, Nose, Mouth, Throat: Reports: No symptoms Respiratory: Reports: Cough, Short of air Cardiac: Reports: Syncope GI: Reports: Other : Reports: Other Musculoskeletal: Reports: Other Skin: Reports: Other Neurological: Reports: Cognitive dysfunction, Weakness Endocrine: Reports: Other Hematologic/Lymphatic: Reports: Other All Other Systems: Other Past Medical History - Past Medical History Endocrine: Reports: Hypothyroid, Dyslipidemia Cardiovascular: Reports: Hypertension Respiratory: Reports: COPD, Other (Respiratory failure ) Hematological: Reports: None Gastrointestinal: Reports: None Genitourinary: Reports: None Neuro/Psych: Reports: Anxiety, Depression Musculoskeletal: Reports: Arthritis, Back Pain Cancer: Reports: None Last Menstrual Period: menopause - Surgical History General Surgical History: Reports: Hysterectomy, Cholecystectomy, Other ( Thyroid ) - Family History Family History: Reports: Unknown - Social History Smoking Status: Never smoker Hx Substance Use: No Alcohol Screening: None Physical Exam - Physical Exam Appearance: Ill-appearing Ill-appearing: Moderate Pain Distress: Mild Eyes: PEGGY, EOMI, Conjunctiva clear ENT: Ears normal, Nose normal, Oropharynx normal Neck: Supple Respiratory: Crackles, Rhonchi Cardiovascular: RRR, Pulses normal, No rub, No murmur GI/: Soft, Nontender Musculoskeletal: Limited ROM Skin: Warm, Dry, Pale Neurological: Disoriented, Alert to verbal Interpretation - EKG Interpretation Time of EKG #1: 12:29 Rate: Normal Rhythm: Sinus ST Segment: Other (LVH) Physician Notification - Case Discussed Physician Notified: JULIA Time of Notification: 13:30 (transfer) Physician Notified: ethan Time of Notification: 14:00 (accepts) Critical Care Note - Critical Care Note Total Time (mins): 30 Course - Course Hematology/Chemistry: 12/22/16 12:55 12/22/16 12:55 Orders, Labs, Meds: Lab Review 12/22/16 12/22/16 12/22/16 12:30 12:55 13:05 WBC 21.30 H RBC 4.85 Hgb 14.2 Hct 43.7 MCV 90.1 MCH 29.3 MCHC 32.5 RDW Coeff of Juan 14.3 Plt Count 394 Immature Gran % (Auto) 6.4 H Neut % (Auto) 66.2 Lymph % (Auto) 17.6 [place] % (Auto) 8.9 Eos % (Auto) 0.1 Baso % (Auto) 0.8 Immature Gran # (Auto) 1.4 H Neut # 14.1 H Lymph # 3.8 H [place] # 1.9 Eos # 0.0 Baso # 0.2 D-Dimer 0.85 Puncture Site R rad R rad O2 Saturation 72.0 L 96.0 ABG pH 7.438 7.392 ABG pCO2 69.2 H 78.7 H ABG pO2 39.0 L* 88.0 ABG HCO3 46.8 H 47.9 H ABG Total CO2 49 H > 50 H ABG Base Excess 23 H 23 H Tyree Test + + O2 Delivery Device Nc Oxygen Liter Flow 3.00 FiO2 % 21.0 Sodium 140 Potassium 3.2 L Chloride 88 L Carbon Dioxide 45 H* Anion Gap 10.2 BUN 23 H Creatinine 0.71 Estimated GFR (MDRD) 79.00 BUN/Creatinine Ratio 32.39 Glucose 169 H Calcium 10.0 Total Bilirubin 0.48 AST 20 ALT 21 Alkaline Phosphatase 32 L Total Creatine Kinase 33 Troponin I 0.0260 B-Natriuretic Peptide 193 H Total Protein 5.6 L Albumin 2.9 L Globulin 2.7 Albumin/Globulin Ratio 1.07 Procalcitonin < 0.05 Orders Category Date Time Status ABG DRAW REQUEST Stat CARDIO 12/22/16 12:28 Completed ABG DRAW REQUEST Stat CARDIO 12/22/16 12:39 Completed EKG-(ED ONLY) Stat CARDIO 12/22/16 12:28 Completed ED IV/MEDIPORT/POWERPORT .ONCE EMERGENCY 12/22/16 12:40 Active ABG Stat LAB 12/22/16 12:30 Completed ABG Stat LAB 12/22/16 13:05 Completed B-TYPE NATRIURETIC PEPTIDE Stat LAB 12/22/16 12:55 Completed BLOOD CULTURE Stat LAB 12/22/16 12:55 Received CBC W/ AUTO DIFF Stat LAB 12/22/16 12:55 Completed COMPREHENSIVE METABOLIC PANEL Stat LAB 12/22/16 12:55 Completed CREATINE KINASE Stat LAB 12/22/16 12:55 Completed D-DIMER Stat LAB 12/22/16 12:55 Completed PROCALCITONIN Stat LAB 12/22/16 12:55 Completed TROPONIN I Stat LAB 12/22/16 12:55 Completed 0.9 % Sodium Chloride [Saline Flush] MEDS 12/22/16 12:40 Active 1 syr IVF PRN PRN Meropenem [Merrem] 1 gm MEDS 12/22/16 14:13 Discontinued 0.9 % Sodium Chloride [Sodium Chloride] 100 ml IV ONCE Meropenem [Merrem] 1 gm MEDS 12/22/16 14:23 Active 0.9 % Sodium Chloride [Sodium Chloride] 100 ml IV ONCE CHEST, 1V AP ONLY Stat RADS 12/22/16 12:40 Completed Medications Generic Name Dose Route Start Last Admin Trade Name Freq PRN Reason Stop Dose Admin Meropenem 1 gm/ Sodium 100 mls @ 200 mls/hr 12/22/16 14:23 12/22/16 14:29 Chloride IV 12/22/16 14:52 200 mls/hr ONCE STA Administration Sodium Chloride 1 syr 12/22/16 12:40 Saline Flush IVF PRN PRN To flush IV Discontinued Medications Generic Name Dose Route Start Last Admin Trade Name Freq PRN Reason Stop Dose Admin Meropenem 1 gm/ Sodium 100 mls @ 100 mls/hr 12/22/16 14:13 12/22/16 14:32 Chloride IV 12/22/16 15:12 Not Given ONCE STA Vital Signs: Temp Pulse Resp BP Pulse Ox 12/22/16 14:15 96 12/22/16 12:24 97 F L 68 22 144/83 H 77 L Departure - Departure Time of Disposition: 14:36 Disposition: HOME SELF-CARE Discharge Problem: Pneumonia Qualifiers: Pneumonia type: due to unspecified organism Laterality: left Lung location: lower lobe of lung Qualifier Code: (J18.1) Lobar pneumonia, unspecified organism Condition: Fair Pt referred to PMD for follow-up: No (hospitalist) Allergies/Adverse Reactions: Allergies paroxetine [From Paxil] Adverse Reaction (Unknown, Verified 12/22/16 12:34) Home Medications: Ambulatory Orders Aspirin [Aspirin Chewable] 81 mg PO QAM 02/25/14 Cholecalciferol (Vitamin D3) [Vitamin D3] 5,000 unit PO DAILY 01/01/16 Levothyroxine Sodium [Synthroid] 175 mcg PO DAILY 01/01/16 Multivitamin [Multi-Vitamin Daily] 1 each PO DAILY 01/01/16 Diltiazem HCl [Cardizem] 60 mg PO Q12HR #60 tablet 01/05/16 Fenofibrate 160 mg PO QAM #30 tablet 01/05/16 Ropinirole HCl [Requip] 0.5 mg PO BEDTIME #30 tablet 01/05/16 Benazepril HCl [Lotensin] 40 mg PO DAILY #30 tablet 08/05/16 Acetaminophen [Mapap] 650 mg PO Q4H PRN 12/15/16 Carvedilol [Coreg] 12.5 mg PO BID 12/15/16 Magnesium Oxide [Mag-Ox] 400 mg PO DAILY 12/15/16 Pantoprazole Sodium [Protonix] 40 mg PO DAILY 12/15/16 Polyethylene Glycol 3350 [Miralax] 17 gm PO DAILY PRN 12/15/16 Furosemide 20 mg PO DIRECTED 12/17/16 Ipratropium/Albuterol Sulfate [Iprat-Albut 0.5-3(2.5) mg/3 ml] 1 vial INH Q2HR PRN 12/17/16 Ipratropium/Albuterol Sulfate [Iprat-Albut 0.5-3(2.5) mg/3 ml] 1 vial INH RTQ6H 12/17/16 Potassium Chloride [K-Tab ER] 10 meq PO DIRECTED 12/17/16 Guaifenesin/Pseudoephedrne HCl [Mucinex D ER Tablet] 2 each PO BID PRN 12/22/16 Rosuvastatin Calcium [Crestor] 20 mg PO DAILY 12/22/16
[2016-12-22 12:35] VITALS: BP 144/83; TEMP 97; BMI 39.8
[2016-12-22 12:37] LABS: ABG PH 7.438 (7.35-7.45)
[2016-12-22 12:38] LABS: ABG BASE EXCESS 23 (-2.0-2.0); ABG HCO3 46.8 (22.0-26.0); ABG PCO2 69.2 mmHg (35-45); ABG TCO2 49 (22.0-28.0)
[2016-12-22 13:07] LABS: BASOPHILS # (AUTO) 0.2 K/uL (0-0.2); BASOPHILS % (AUTO) 0.8 % (0.0-3.0); EOSINOPHILS % (AUTO) 0.1 % (0.0-7.0); HEMATOCRIT 43.7 % (37.0-47.0); HEMOGLOBIN 14.2 g/dl (12.0-16.0); IMMATURE GRANULOCYTE % (AUTO) 6.4 % (0.0-5.0); LYMPHOCYTES # (AUTO) 3.8 K/uL (0.60-3.4); LYMPHOCYTES % (AUTO) 17.6 (10.0-50.0); MEAN CORPUSCULAR HEMOGLOBIN 29.3 pg (27.0-31.0); MEAN CORPUSCULAR HGB CONC 32.5 (31.8-35.4); MEAN CORPUSCULAR VOLUME 90.1 fl (81.0-99.0); MONOCYTES # (AUTO) 1.9 K/uL (0.4-2.0); MONOCYTES % (AUTO) 8.9 (0-10); NEUTROPHILS # (AUTO) 14.1 K/ul (2.0-6.9); NEUTROPHILS % (AUTO) 66.2; PLATELET COUNT 394 10^3/uL (140-440); RED BLOOD COUNT 4.85 10^6/ul (4.20-5.40)
[2016-12-22 13:13] LABS: ABG PH 7.392 (7.35-7.45)
[2016-12-22 13:14] LABS: ABG BASE EXCESS 23 (-2.0-2.0); ABG PCO2 78.7 mmHg (35-45)
[2016-12-22 13:15] LABS: ABG HCO3 47.9 (22.0-26.0); ABG TCO2 > 50 (22.0-28.0)
--- NOTE | 2016-12-22 13:34 | DI ---
Examination: Single radiographic image of the chest. Comparison: 12/17/2016. Reason for study: Chest pain. FINDINGS: There is blunting of the left costophrenic angle with persistent prominence of the cardia c silhouette and aortic calcifications. Old granulomas disease is seen throughout the lung parenchy ma. Left-sided airspace opacities consistent with atelectasis or pneumonia. Impression: 1. Left-sided pleural effusion with likely retrocardiac/left lower lobe atelectasis or pneumonia. 2. Persistent cardiomegaly.
[2016-12-22 13:38] LABS: ALBUMIN 2.9 g/dL (3.4-5.0); ALBUMIN/GLOBULIN RATIO 1.07; ANION GAP 10.2; BILIRUBIN,TOTAL 0.48 mg/dL (0.00-1.20); BUN/CREATININE RATIO 32.39; CREATININE 0.71 mg/dL (0.60-1.30); POTASSIUM 3.2 mmol/L (3.5-5.10); TOTAL PROTEIN 5.6 g/dL (5.8-8.1); TROPONIN I 0.026 ng/ml (0.0000-0.4000)
[2016-12-22] MEDS ORDERED: ZOSYN 3.375 GM 3.375 GM in SODIUM CHLORIDE 100 ML IV STA (13:58)
[2016-12-22] MEDS ORDERED: ZOSYN 4.5 GM 4.5 GM in SODIUM CHLORIDE 100 ML IV STA (14:00)
[2016-12-22] MEDS ORDERED: MERREM 1 GM in SODIUM CHLORIDE 100 ML IV STA ×2 (14:13→14:23)
== END 2016-12-22 15:13 | disposition home or self-care (01) ==
LOC: ED 12:14
DX: J18.1 Lobar pneumonia, unspecified organism (principal); R41.82 Altered mental status, unspecified; R06.02 Shortness of breath; I10 Essential (primary) hypertension; E03.9 Hypothyroidism, unspecified; E78.5 Hyperlipidemia, unspecified; Z87.09 Personal history of other diseases of the respiratory system; Z79.899 Other long term (current) drug therapy
CPT/HCPCS: 36415; 80053; 82550; 82803; 83880; 84145; 84484; 85025; 85379; 87040; 93005; 93010; 94660; 96365; 99285

== ENCOUNTER 2016-12-31 21:39 | Outpatient (CLI) | END 2016-12-31 21:40 | disposition home or self-care (01) | LOC: AMBL 21:39 | PROVIDERS: ATTEND Emergency Medicine | DX: R50.9 Fever, unspecified (principal); J18.9 Pneumonia, unspecified organism; R53.1 Weakness ==